=== PATIENT | male | born 1950 | race Two or more races ===

== ENCOUNTER 2025-02-21 23:47 | Inpatient (IN) | payer MEDICARE, OTHER, SELFPAY ==
[2025-02-21 23:48] VITALS: BMI 26.6
[2025-02-21 23:59] VITALS: BP 132/78; PULSE 89; RESP 20; TEMP 37.2; O2SAT 99
[2025-02-22] VITALS (8 sets, daily range): BP systolic 143–184; BP diastolic 81–99; PULSE 82–105; RESP 17–26; TEMP 36.2–36.4; O2SAT 92–98; BMI 27.7
--- NOTE | 2025-02-22 | XR_ITS ---
Examination: Abdomen AP single view Technique: AP portable supine abdomen, single view Exam date and time: February 22, 2025, 1656 hrs. Indications: 7 hour delayed film post small bowel series today. Findings: Prominently air distended small bowel loops Impression: High-grade mechanical small bowel obstruction. Recommend follow-up films 6:00 PM, 8:00 PM, 10:00 PM
--- NOTE | 2025-02-22 | XR_ITS ---
Examination: Abdomen AP single view Technique: AP portable supine abdomen, single view Exam date and time: February 22, 2025 1303 hours INDICATIONS: Abdominal pain and distention this week, 3 hour delayed film post small bowel series today FINDINGS: Contrast remains in the stomach Significantly air distended small bowel loops noted IMPRESSION: Small bowel obstruction pattern Continued follow-up films will be obtained
--- NOTE | 2025-02-22 | XR_ITS ---
Examination: Abdomen AP single view Technique: AP portable supine abdomen, single view Exam date and time: February 22, 2025, 1442 hours INDICATIONS: Abdominal distention today, small bowel obstruction pattern on CT abdomen pelvis study 0203 hours this morning, 5 hour delayed film post small bowel series FINDINGS: Contrast in distended small bowel loops IMPRESSION: High-grade mechanical small bowel obstruction
--- NOTE | 2025-02-22 00:12 | XR_ITS ---
Examination: CT abdomen with intravenous contrast CT pelvis with intravenous contrast 2-D coronal reconstructions 2-D sagittal reconstructions Date and time of exam:February 22, 2025, 0203 hours, comparison December 30, 2023 INDICATIONS: Abdominal pain nausea vomiting today. CTDI: vol (mGy) 7.40 DLP: (mGycm) 506 Technique: Multiple axial sections of the abdomen and pelvis have been obtained. 64 slice high-resolution scanner used. 3 mm axial sections have been obtained, post intravenous injection 60 cc [id number] 2-D sagittal, coronal reconstructions obtained. Low dose protocols were performed. One or more of the following dose reduction techniques were used; automated exposure control, adjustment of the mA and/or KV according to patient size, use of iterative reconstruction technique. Findings: Mild enlargement cardiac contour. Fluid distended stomach. No focal liver lesions No gallstones No pancreatic mass Multiple prominently fluid distended small bowel loops Aortic calcification no aneurysmal dilatation No hydronephrosis Colon is decompressed There is rotation of the mesentery in the midabdomen Moderate prostatomegaly Fat-containing inguinal hernias Urinary bladder intact Advanced disc narrowing L4-L5 with prominent osteopenia IMPRESSION: High-grade mechanical small bowel obstruction, recommend surgical consultation Recommend Gastrografin small bowel series follow-up
--- NOTE | 2025-02-22 00:13 | PD.EDRME ---
Rapid Medical Screening Exam RME Arrival date/time: 02/21/25 23:47 74M with history of DM presents to ED with 1 day of gen ab pain and N/V. Patient states he had an SBO last year and this feels the same. Chief Complaint: Abdominal Pain Vital signs: Vital Signs Temperature 99 F 02/21/25 23:59 Pulse Rate 89 02/21/25 23:59 Respiratory Rate 20 02/21/25 23:59 Blood Pressure 132/78 H 02/21/25 23:59 Pulse Oximetry (%) 99 02/21/25 23:59 Oxygen Delivery Method Room Air 02/21/25 23:59
[2025-02-22 00:37] LABS: Collection Type, Urine Clean Catch; Squamous Epithelial Cell,Urine 0 /hpf (0-5)
[2025-02-22 00:46] LABS: Bilirubin,Urine Negative (Negative); Blood,Urine 1+ (Negative); Clarity,Urine Clear (Clear/Hazy); Color,Urine Lt-Yellow (Lt Yel-Yel); Culture Indicated,Urine Not Indicated; Glucose, Urine Negative (Negative); Ketones,Urine Trace (Negative); Leukocyte Esterase,Urine Negative (Negative); Nitrite,Urine Negative (Negative); PH,Urine 6.0 (5.0-7.0); Protein,Urine Trace (Neg - Trace); RBC,Urine 12 /hpf (0-3); Specific Gravity,Urine 1.017 (1.001-1.035); Urobilinogen,Urine Negative mg/dL (0.0-1.0); WBC,Urine 1 /hpf (0-5)
[2025-02-22 00:51] LABS: Amphetamine/Methamp Scrn,U Negative (Negative); Barbiturate Screen,Urine Negative (Negative); Benzodiazepines Screen,Urine Negative (Negative); Benzoylecgonine Screen, Ur Negative (Negative); Fentanyl Screen,Urine Negative (Negative); Opiate Screen,Urine Negative (Negative); THC Screen,Urine Negative (Negative)
[2025-02-22 00:57] LABS: Lactate (Lactic Acid) 2.0 mMol/L (0.4-2.0)
[2025-02-22 01:12] LABS: Basophils # (Auto) 0.0 Thou/mm3 (0.0-0.2); Basophils % (Auto) 0 % (0-2.5); Eosinophils # (Auto) 0.1 Thou/mm3 (0.0-0.5); Eosinophils % (Auto) 1 % (0-10); Hematocrit 39.1 % (41.0-53.0); Hemoglobin 13.0 g/dL (13.5-16.0); Immature Granulocytes Auto 0.03 Thou/mm3 (0.00-0.00); Lymphocytes # (Auto) 1.3 Thou/mm3 (1.0-4.8); Lymphocytes % (Auto) 17 % (10-50); Mean Corpuscular HGB Conc 33.2 g/dl (31.0-37.0); Mean Corpuscular Hemoglobin 30.9 pg (25.0-35.0); Mean Corpuscular Volume 93 fL (80-100); Monocytes # (Auto) 0.3 Thou/mm3 (0.0-0.8); Monocytes % (Auto) 4 % (0-12); Neutrophils # (Auto) 5.7 Thou/mm3 (1.8-7.7); Neutrophils % (Auto) 77 % (37-80); Nucleated Red Blood Cell # 0.00 Thou/mm3 (0.00-0.00); Nucleated Red Blood Cell % 0 /100 WBC (0); Platelet Count 117 Thou/mm3 (140-440); RDW Standard Deviation 44.7 fL (35.1-43.9); Red Blood Count 4.21 Miln/mm3 (4.50-5.90); White Blood Count 7.4 Thou/mm3 (3.8-10.6)
[2025-02-22 01:26] LABS: Alanine Aminotransferase 10 U/L (10-49); Albumin, Serum 5.0 gm/dL (3.4-4.8); Albumin/Globulin Ratio 2.4 (1.2-2.2); Alkaline Phosphatase 105 U/L (46-116); Anion Gap 12 (7-16); Aspartate Amino Transferase 15 U/L (0-34); BUN/Creatinine Ratio 11 Ratio (12-20); Bilirubin,Total 0.4 mg/dL (0.3-1.2); Blood Urea Nitrogen 14 mg/dL (9-23); Calcium 10.7 mg/dL (8.3-10.6); Calcium (Corrected) 10.7 mg/dL (8.5-10.1); Carbon Dioxide 24.9 mMol/L (20.0-31.0); Chloride 106 mMol/L (98-107); Creatinine (Component) 1.3 mg/dL (0.6-1.3); Estimated Creatinine Clearance 45.2 mL/min (>60); Globulin 2.1 gm/dL (2.3-3.5); Glucose 241 mg/dL (74-106); Lipase 29 U/L (12-53); Osmolality,Calculated 293 (275-295); Potassium 4.6 mMol/L (3.4-5.1); Procalcitonin 0.05 ng/ml (0.0-0.49); Sodium 143 mMol/L (136-145); Total Protein 7.1 gm/dL (5.7-8.2); eGFR 57 See Note
[2025-02-22] MEDS: ONDANSETRON INJ 2 MG/ML INJ 2 ML 4 MG IV (01:32)
[2025-02-22] MEDS: MORPHINE SULF INJ 10 MG/ML VIAL 5 MG IVP (01:33)
--- NOTE | 2025-02-22 01:39 | PC.NURSE ---
PT BIB FOR 1 DAY OD ABDOMINAL PAIN WITH N/V. PT STATES THAT HE WAS JUST IN [facility] FOR CONSTPATION. PT STATES HE HAS A HISTORY OF SBO
--- NOTE | 2025-02-22 03:17 | PD.EDABDPN ---
ED Abdominal Pain RME/HPI General Chief Complaint: Abdominal Pain Stated complaint: ABD PAIN NV Arrival date/time: 02/21/25 23:47 RME / HPI RME / HPI narrative: 02/21/25 23:47 74M with history of DM presents to ED with 1 day of gen ab pain and N/V. Patient states he had an SBO last year and this feels the same. DR. 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 Denies fever and dysuria. Notes chills worse with ambulation. 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 Currently no mild distention. PMH of DM. Previous surgical history unremarkable. Report allergies to penicillin. Social history negative for tobacco and alcohol consumption. Related Data Previous Rx's ?Medication ?Instructions ?Recorded magnesium hydroxide 400 mg/5 mL 20 ml PO TID PRN constipation #355 12/30/23 oral suspension (Milk of Magnesia) mL Allergies Allergy/AdvReac Type Severity Reaction Status Date / Time Penicillins Allergy Intermediate Rash Verified 02/21/25 23:51 Review of Systems Review of Systems Systems Reviewed: All systems reviewed, normal except as documented Past Medical History Past Medical History CARDIAC: Positive Hypertension GASTROINTESTINAL: Positive Gastroesophageal Reflux Disease ENDOCRINE: Positive Diabetes Mellitus Type 2 ED Exam Narrative Physical exam: GEN. APPEARANCE: The patient is alert awake oriented X-3 in no distress, lying down comfortably, does not look ill/toxic. Patient has good eye contact. Patient is cooperative. VITALS: All vitals were reviewed and the pulse ox is 98% on room air which is normal according to my interpretation. HEENT: Normocephalic, atraumatic. Pupils are equal and reactive. Oral mucosa is moist. Patent Nares NECK: Supple, nontender, no thyromegaly, no meningismus, no JVD, no step offs CHEST: Symmetrical, atraumatic, and with equal expansion , Nontender on palpation no deformity and no crepitus. CARDIOVASCULAR: Heart regular rhythm no murmur or gallop rub or extra beats. LUNGS: Clear to auscultation bilaterally with symmetrical chest rise. No laboring tachypnea or wheezing. No intercostal subcostal retraction. No rales and no rhonchi. ABDOMEN: Soft, flat, abdomen mildly distended, hypertympanitic with tenderness to suprapubic area and RLQ, slight guarding noted, no rebound tenderness. There are no abnormal masses palpated. Active and normal bowel sounds. EXTREMITIES: Nontender. No edema. No cyanosis. Patient is able to move all 4 extremities well, with full ROM and good CSM. SKIN: Warm and dry, no jaundice or rashes noted. MUSCULOSKELETAL: No lubar or midline bony tenderness. There is no CVA tenderness. No paraspinal muscle spasm or tenderness. NEURO: Patient is SHIPLEY x 4, Cranial nerves II through XII grossly intact. There is no focal neurologic deficits noted. GCS is 15, PNS and [employer] appear grossly intact. PSYCHIATRIC: Patient is in normal mood and affect, cooperative, no SI or HI or hallucinations. Course Course Course Narrative: CXR was ordered for determining the etiology of shortness of breath. Quality Measures none Orders Category Date Time Status Admit to Inpatient Status Routine Admission 02/22/25 05:41 Active Patient Condition Routine Admission 02/22/25 05:[address] Screening NOW Care 02/22/25 00:12 Active Insert IV NOW Care 02/22/25 00:12 Active Insert NG / OG tube NOW Care 02/22/25 03:56 Active Miscellaneous Nursing Order NOW Care 02/22/25 05:40 Active NG / OG Tube to LIS NOW Care 02/22/25 03:30 Completed NPO NOW Care 02/22/25 05:41 Active Notify provider NEEDED Care 02/22/25 05:40 Active Diet NPO (NOW) Diet 02/22/25 05:[address] abdomen pelvis w con Stat Exams 02/22/25 00:12 Taken XR chest 1V post procedure Stat Exams 02/22/25 04:30 Taken Basic Metabolic Panel AM DRAW Lab 02/23/25 05:00 Ordered Basic Metabolic Panel AM DRAW Lab 02/24/25 05:00 Ordered Basic Metabolic Panel AM DRAW Lab 02/25/25 05:00 Ordered CBC AM DRAW Lab 02/23/25 05:00 Ordered CBC AM DRAW Lab 02/24/25 05:00 Ordered CBC AM DRAW Lab 02/25/25 05:00 Ordered CBC Stat Lab 02/22/25 00:51 Completed CMP [Comprehensive Metabolic Panel] Stat Lab 02/22/25 00:51 Completed Drug Screen,Urine Stat Lab 02/22/25 00:30 Completed Lactate (Lactic Acid) Stat Lab 02/22/25 00:51 Completed Lipase Stat Lab 02/22/25 00:51 Completed Procalcitonin Stat Lab 02/22/25 00:51 Completed Urinalysis, C/S if Indicated Stat Lab 02/22/25 00:30 Completed Heparin Inj Med 02/22/25 09:00 Active 5,000 unit SC Q12HR Morphine Inj Med 02/22/25 05:40 Active 2 mg IVP Q2H PRN Morphine Inj Med 02/22/25 03:17 Discontinued 4 mg IVP X1 ONE Morphine Inj Med 02/22/25 00:12 Discontinued 5 mg IVP X1 ONE Ondansetron Inj [Zofran Inj] Med 02/22/25 00:12 Discontinued 4 mg IV X1 ONE Ondansetron Inj [Zofran Inj] Med 02/22/25 05:40 Active 4 mg IVP Q6H PRN Ringers Lactated 1000 ml [Lactated Ringers] 1,000 ml Med 02/22/25 05:45 Active IV 75 mls/hr Sodium Chloride 0.9% 1000 ml [Ns] 1,000 ml Med 02/22/25 03:17 Discontinued IV 999 mls/hr Code Status Routine Oth 02/22/25 05:40 Ordered Vital Signs Vital signs: Vital Signs Temperature 99 F 02/21/25 23:59 Pulse Rate 89 02/21/25 23:59 Respiratory Rate 20 02/21/25 23:59 Blood Pressure 132/78 H 02/21/25 23:59 Pulse Oximetry (%) 99 02/21/25 23:59 Oxygen Delivery Method Room Air 02/21/25 23:59 Abdominal Pain MDM MDM Narrative MDM Narrative:: Scribe Attestation: I, Padmini Jones, am scribing for and in the presence of Dr. Rangel. Provider Notation: Although this document has been carefully reviewed, there may still be some phonetic and other typographical errors. These errors are purely grammatical due to imperfections in the software program and should not be construed in any way to? compromise the substance of the patient's medical care during this visit. 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 Denies fever and dysuria. Notes chills worse with ambulation. Please see PE findings. Laboratory markings demonstrate normal WBC. Serum chemistries demonstrate marginally elevated calcium of 10.7 and UA demonstrates mild hematuria. Toxicology screen is negative. Imaging including CT of the abdomen/pelvis demonstrates partial small bowel obstruction. NG tube placed to decompress, hospitalists consulted for admission. Final diagnosis includes small bowel obstruction, and disposition patient admitted to medicine service. Patient data External records reviewed:: [facility] previous records (Reviewed prior ED records from 12/30/23. Patient was seen for Abdominal pain.) Clinical information provided by:: patient Social determinants that could affect healthcare access:: none Patient has the following chronic illnesses:: HTN, GERD, Type II DM How is presenting disease/condition affected by chronic disease/condition?: exacerbated by Evaluation data The following diagnostics were reviewed and interpreted by me:: lab results and radiology exam(s) Lab and/or radiology exams considered but not ordered:: None Interpretation Summary: RADIOLOGY Abdomen/Pelvis CT: Pending official radiology report. Chest X-Ray: Pending official radiology report. Medications / Prescriptions Medications or Prescriptions considered but not ordered:: None Medication administrations:: Medication Administration History Dextrose (Dextrose 50%-Water Inj 50 Ml Syringe) 25 ml IV Q15MIN PRN PRN Reason: BG 50-70 responsive npo pt Stop: 03/24/25 05:44 Dextrose (Dextrose 50%-Water Inj 50 Ml Syringe) 50 ml IV Q15MIN PRN PRN Reason: BG <50 OR BG <70 & pt unresponsive Stop: 03/24/25 05:44 Glucagon (Glucagon Inj 1 Mg Vial) 1 mg IM Q15MIN PRN PRN Reason: BG <70, and no IV access Heparin Sodium (Porcine) (Heparin Sod Inj 5000 Unit/Ml Vial) 5,000 unit SC Q12HR PIERCE Stop: 03/08/25 08:59 Lactated Ringer's (Lactated Ringers) 1,000 mls @ 75 mls/hr IV .[id number] PIERCE Stop: 02/23/25 08:24 Last Admin: 02/22/25 05:48 Dose: 75 mls/hr Documented By: CRISTOPHER Insulin Human Lispro (Insulin Lispro (Admelog) 1 Unit/0.01 Ml Unit) 0 unit SC Q6HR PIERCE; Protocol Stop: 03/24/25 05:59 Last Admin: 02/22/25 06:05 Dose: 3 unit Documented By: CRISTOPHER Co-signed By: OKSANA Morphine Sulfate (Morphine Sulf Inj 10 Mg/Ml Vial) 2 mg IVP Q2H PRN PRN Reason: PAIN SCALE 7-10 (Severe Stop: 02/27/25 05:39 Ondansetron HCl (Ondansetron Inj 2 Mg/Ml Inj 2 Ml) 4 mg IVP Q6H PRN; Protocol PRN Reason: NAUSEA OR VOMITING Stop: 03/24/25 05:39 Discontinued Medications Sodium Chloride (Ns) 1,000 mls @ 999 mls/hr IV .Q1H1M ONE Stop: 02/22/25 04:17 Last Infusion: 02/22/25 04:29 Dose: Infused Documented By: Admin: 02/22/25 03:28 Dose: 999 mls/hr Documented By: CRISTOPHER Morphine Sulfate (Morphine Sulf Inj 10 Mg/Ml Vial) 5 mg IVP X1 ONE Stop: 02/22/25 00:13 Last Admin: 02/22/25 01:33 Dose: 5 mg Documented By: CRISTOPHER Morphine Sulfate (Morphine Sulf Inj 10 Mg/Ml Vial) 4 mg IVP X1 ONE Stop: 02/22/25 03:18 Last Admin: 02/22/25 03:28 Dose: 4 mg Documented By: CRISTOPHER Ondansetron HCl (Ondansetron Inj 2 Mg/Ml Inj 2 Ml) 4 mg IV X1 ONE; Protocol Stop: 02/22/25 00:13 Last Admin: 02/22/25 01:32 Dose: 4 mg Documented By: CRISTOPHER See above if any. Consultations Consultation(s) initiated? (list below): Yes Consultation #1 (Physician, Specialty, Details): Discussed case with [place]. [place] approved admission to hospital. [place] approval code: [id number]. Time: 04:50 Consultation #2 (Physician, Specialty, Details): Hospitalist made aware of the patient?s HPI, PMHx, lab and/or radiology results. Treatment plan was discussed. Will admit for further evaluation and management. Accepts patient for admission. Time: 04:54 Diagnosis Differential diagnosis abdominal pain: abdominal pain, acute appendicitis, calculus of kidney, constipation, diverticulitis, gastroenteritis, pancreatitis and small bowel obstruction Most likely diagnosis given after review of the tests above:: SBO Admission Indicated Admission indicated?: indicated Explain why admission is indicated or not indicated:: SBO Admission Request Was there a request for admission?: Yes Admission Attestation Admission request attestation: Discussed case with [] from Hospitalist service regarding admission. Discussed patients ED course, exam findings, labs, and radiology results. The Hospitalist [agrees,declines] to accept the patient for admission. Disposition Plan Disposition Plan: Admit Discharge Plan Plan Patient Disposition: Admit Acute Care w/in Hospital Problem List Clinical Impression: Small bowel obstruction
[2025-02-22] MEDS: MORPHINE SULF INJ 10 MG/ML VIAL 4 MG IVP (03:28)
[2025-02-22] MEDS: SODIUM CHLORIDE 0.9% 1000 ML 1,000 ML 999 ML IV (03:28)
--- NOTE | 2025-02-22 03:37 | PRELIM_ITS ---
CT scan of the abdomen and pelvis with intravenous contrast (axial sections with sagittal and coronal reformats) February 22, 2025 0203 hours Clinical History: Abdominal pain and N/V Comparison: None Findings: There is a 6 mm subpleural nodule versus scarring in the right middle lobe (axial image 26/311). Bibasilar atelectasis is seen. The gallbladder, pancreas and spleen are unremarkable. There is fatty infiltration of the liver with a subcentimeter too small to characterize hypodensity in the right lobe. There is mild bilateral adrenal hyperplasia. There are renal cortical cysts bilaterally. There is no ureteric calculus or hydroureteronephrosis. There are fluid filled and abnormally clustered dilated loops of mid/distal jejunum in the mid abdomen with adjacent mesenteric fat stranding and fluid. The transition is in the mid abdomen mesentery at the level of proximal ileum with possible partial mesenteric twist (coronal images 70-80/176). The remainder of small bowel is normal in caliber. There is a diverticulum from the third part of the duodenum. The appendix is within normal limits (images 140-170/311). A moderate amount of fecal material is present in the colon. There are multiple colonic diverticula without evidence of diverticulitis. There are subcentimeter lymph nodes in the mid abdomen mesentery. The urinary bladder is unremarkable. There is moderate prostatomegaly indenting the bladder base. There is no free fluid or free air. The abdominal aorta demonstrates atheromatous calcification without evidence of aneurysm. A small fat-containing umbilical hernia is present. There are small fat containing bilateral inguinal hernias. Osseous degenerative changes are noted. Impression: Findings suggestive of high grade small bowel obstruction with transition in the mid abdomen at the level of proximal ileum possibly related to partial mesenteric twist/volvulus versus adhesions. Recommend clinical correlation. Other findings as described above. Discussion Details: Results verbally communicated to : Dr. Gould at 03:25 AM 02/22/2025 Report Electronically Signed By: River Abel 02/22/2025 3:36:05 AM [EST]
--- NOTE | 2025-02-22 04:30 | XR_ITS ---
Examination: AP chest single view TECHNIQUE: AP portable upright chest single view Date and time: February 22, 2025, 0435 hours INDICATIONS: Post orogastric tube placement FINDINGS: Orogastric tube in the stomach satisfactory position Air distended small bowel loops Large mass displacing the trachea to the left which may represent enlarged right lobe the thyroid Minor subsegmental atelectasis right base IMPRESSION: Orogastric tube in the stomach satisfactory position Recommend thyroid sonography follow-up to confirm large substernal right thyroid lobe
--- NOTE | 2025-02-22 05:45 | XR_ITS ---
Examination: Small bowel series AP abdomen 3 views INDICATIONS: Abdominal pain and distention this week, high-grade mechanical small bowel obstruction on CT abdomen pelvis study 0203 hours this morning TECHNIQUE AND FINDINGS: Patient received 120 cc Gastrografin through the orogastric tube AP supine abdomen films immediate, 30 minutes, 1 hour obtained Multiple air distended small bowel loops Contrast remains in the colon IMPRESSION: Small bowel obstruction pattern Recommend follow-up abdomen films 1:00 PM, 3:00 PM, 5:00 PM, 7:00 PM
[2025-02-22] MEDS: RINGERS LACTATED 1000 ML 1,000 ML 75 ML IV ×2 (05:48→18:27)
--- NOTE | 2025-02-22 05:48 | ESHP_ITS ---
Documentation for date of: 02/22/25 HPI History of Present Illness Chief complaint: N/V, abdominal pain History of present illness: 74 y/o F with PMHx significant for DM, previous episode of SBO presents with chief complaint of abdominal pain, nausea, vomiting x 1 day. Patient reports that the pain is diffuse, achy, progressively worsening, associated with multiple episodes of emesis, nonbloody. Patient also reports poor appetite during this time. Patient denies fevers, chills, chest pain, shortness of breath. ED COURSE: Labs significant for: WBC 7.4, hemoglobin 13, creatinine 1.3, EGFR 57. Corrected calcium 10.7 Pro-Feliciano negative. Urinalysis showed 12 RBCs. Serum glucose 241. Imaging significant for: CT A/P showing high-grade SBO. Patient had NG tube placed, received 1 L bolus normal saline, morphine in the ED. PMH: Diabetes PSH: No previous surgeries SH: Denies alcohol, tobacco, illicit drug use Allergies:?Penicillin Medications: Lisinopril, glipizide, metformin, simvastatin, Protonix Review of Systems Review of Systems Systems Reviewed: All systems reviewed, normal except as documented Past Medical History Past Medical History Comments PMH COMMENT: PMH: Diabetes PSH: No previous surgeries SH: Denies alcohol, tobacco, illicit drug use Allergies:?Penicillin Medications: Lisinopril, glipizide, metformin, simvastatin, Protonix Exam Vital Signs Temp Pulse Resp BP Pulse Ox O2 Del Method 97.5 F 82 26 H 158/81 H 97 Room Air 02/22/25 01:23 02/22/25 01:23 02/22/25 01:23 02/22/25 02:16 02/22/25 01:23 02/22/25 01:23 Narrative Exam PE: Gen: Well-developed and well-nourished. HEENT: NCAT, PERRLA, EOMI, MMM, anicteric conjunctivae. NG tube. CVS: normal S1 and S2. RRR. No M/R/G. Resp: CTA B/L. No rhonchi, rales, crackles or wheezing. Abd: Distended, diffuse mild abdominal tenderness. MSK: Good ROM in BUE & BLE. No edema or rash. Neuro: CN II-XII grossly intact. Strength 5/5 in BUE & BLE. Alert and oriented x3. Psych: appropriate mood and affect. Results: Labs 02/22/25 00:51 02/22/25 00:51 Labs: Short CBC 02/22/25 Range/Units 00:51 WBC 7.4 (3.8-10.6) Thou/mm3 Hgb 13.0 L (13.5-16.0) g/dL Hct 39.1 L (41.0-53.0) % Plt Count 117 L (140-440) Thou/mm3 BMP 02/22/25 00:51 Sodium 143 Potassium 4.6 Chloride 106 Carbon Dioxide 24.9 BUN 14 Creatinine 1.3 Glucose 241 H Calcium 10.7 H Liver Function 02/22/25 Range/Units 00:51 Total Bilirubin 0.4 (0.3-1.2) mg/dL AST 15 (0-34) U/L ALT 10 (10-49) U/L Alkaline Phosphatase 105 (46-116) U/L Albumin 5.0 H (3.4-4.8) gm/dL Urine 02/22/25 Range/Units 00:30 Urine Color Lt-Yellow (Lt Yel-Yel) Urine Clarity Clear (Clear/Hazy) Urine pH 6.0 (5.0-7.0) Ur Specific [place] 1.017 (1.001-1.035) Urine Protein Trace (Neg - Trace) Urine Glucose (UA) Negative (Negative) Quality Measures Quality Measures VTE prophylaxis Advance care planning discussed with:: patient Medications Home Medications and Allergies Allergies Allergy/AdvReac Type Severity Reaction Status Date / Time Penicillins Allergy Intermediate Rash Verified 02/21/25 23:51 Visit Medications Dextrose (Dextrose 50%-Water Inj 50 Ml Syringe) 25 ml IV Q15MIN PRN PRN Reason: BG 50-70 responsive npo pt Stop: 03/24/25 05:44 Dextrose (Dextrose 50%-Water Inj 50 Ml Syringe) 50 ml IV Q15MIN PRN PRN Reason: BG <50 OR BG <70 & pt unresponsive Stop: 03/24/25 05:44 Glucagon (Glucagon Inj 1 Mg Vial) 1 mg IM Q15MIN PRN PRN Reason: BG <70, and no IV access Heparin Sodium (Porcine) (Heparin Sod Inj 5000 Unit/Ml Vial) 5,000 unit SC Q12HR PIERCE Stop: 03/08/25 08:59 Lactated Ringer's (Lactated Ringers) 1,000 mls @ 75 mls/hr IV .[id number] PIERCE Stop: 02/23/25 08:24 Insulin Human Lispro (Insulin Lispro (Admelog) 1 Unit/0.01 Ml Unit) 0 unit SC Q6HR PIERCE; Protocol Stop: 03/24/25 05:59 Morphine Sulfate (Morphine Sulf Inj 10 Mg/Ml Vial) 2 mg IVP Q2H PRN PRN Reason: PAIN SCALE 7-10 (Severe Stop: 02/27/25 05:39 Ondansetron HCl (Ondansetron Inj 2 Mg/Ml Inj 2 Ml) 4 mg IVP Q6H PRN; Protocol PRN Reason: NAUSEA OR VOMITING Stop: 03/24/25 05:39 Discontinued Medications Sodium Chloride (Ns) 1,000 mls @ 999 mls/hr IV .Q1H1M ONE Stop: 02/22/25 04:17 Last Infusion: 02/22/25 04:29 Dose: Infused Morphine Sulfate (Morphine Sulf Inj 10 Mg/Ml Vial) 5 mg IVP X1 ONE Stop: 02/22/25 00:13 Last Admin: 02/22/25 01:33 Dose: 5 mg Morphine Sulfate (Morphine Sulf Inj 10 Mg/Ml Vial) 4 mg IVP X1 ONE Stop: 02/22/25 03:18 Last Admin: 02/22/25 03:28 Dose: 4 mg Ondansetron HCl (Ondansetron Inj 2 Mg/Ml Inj 2 Ml) 4 mg IV X1 ONE; Protocol Stop: 02/22/25 00:13 Last Admin: 02/22/25 01:32 Dose: 4 mg Assessment & Plan Plan 74 y/o F with PMHx significant for DM, previous episode of SBO presents with chief complaint of abdominal pain, nausea, vomiting x 1 day, admitted for high- grade SBO. #SBO Patient presents with abdominal pain, nausea, vomiting x 1 day. Patient reports feeling similar symptoms 1 year ago when he had SBO resolved without surgical intervention. CT A/P confirms high-grade BL. Patient seen later with no symptom, NG tube placed in ED. Patient has no previous history of surgery. - N.p.o. - NG tube to LIS - Small bowel follow-through with Gastrografin - Morphine as needed for pain - IVF: LR at 75 mL/h x 2 L #DM Patient history as stated. No A1c on file. [id number]. Serum glucose 241 on admission. - ISS every 6 hours - A1c ordered, follow-up DVT prophylaxis: Heparin GI prophylaxis: None Diet: N.p.o. Lines: Peripheral IV, NG tube Code status: Full code Plan of care discussed with attending Dr. Shea. Elijah Savage MD PGY?2 Attending Provider Attestation/Addendum After examination of the patient and review of the clinical data I feel that this patient needs admission to the hospital for further treatment/evaluation. I have discussed and was present for the essential components of the history, physical examination, diagnosis, and treatment plan with the resident. I agree with the patient's care as documented by the resident and amended herein by me. Wilian Shea DO. Although this document has been carefully reviewed, there may still be some phonetic and other typographical errors. These errors are purely grammatical due to imperfections in the software program and should not be construed in any way to compromise the substance of the patient's medical care during this visit.
[2025-02-22] MEDS: INSULIN LISPRO (AdmeLOG) 1 UNIT/0.01 ML UNIT SC ×3 (06:05→18:01)
[2025-02-22 06:25] LABS: Glucose Estimated Average 157 mg/dL (80-131); Hemoglobin A1C 7.1 % Hgb (4.8-6.0)
[2025-02-22] MEDS: HEPARIN SOD INJ 5000 UNIT/ML VIAL SC ×2 (09:11→20:48)
[2025-02-22] MEDS: MORPHINE SULF INJ 10 MG/ML VIAL 2 MG IVP ×2 (09:23→13:01)
[2025-02-22] MEDS: ONDANSETRON INJ 2 MG/ML INJ 2 ML 4 MG IVP ×2 (11:09→16:53)
--- NOTE | 2025-02-22 15:32 | ESPR_ITS ---
<Statement entered by Aubrey Navarro MD - 03/05/25 08:45> I reviewed above note and agree with findings and plans. I have also personally examined the patient with medicine team and went over assessment and plan with medical team including creative intern and resident physician. <Statement entered by Jadiel Wyman MD - 02/22/25 15:47> Senior Resident Attestation: I supervised/discussed management plan with creative intern physician Dr. Whitman, and was involved in the care of this patient. I personally saw and examined the patient and discussed the assessment and plan with the entire medicine team, including my attending. I agree with the assessment and plan as documented. Patient is undergoing SBS, LIS is discontinued. He does not pass gas yet. Will continue SBS and will consider GS consult. Patient's care was discussed with attending physician, Dr. Navarro. Jadiel Wyman MD PGY-3. Documentation for date of: 02/22/25 Subjective Subjective Interval history: Patient seen at bedside this morning. No acute events overnight. Denies passage of flatus or having a bowel movement. Recently received Gastrografin. Abdomen is distended. Will continue to monitor for worsening symptoms. No additional complaints at this time. Exam Vital Signs Temp Pulse Resp BP Pulse Ox O2 Del Method 97.6 F 98 18 151/97 H 95 Room Air 02/22/25 12:00 02/22/25 12:00 02/22/25 12:00 02/22/25 12:00 02/22/25 12:00 02/22/25 12:00 Narrative Exam Physical Exam General: Awake and in no acute distress. Uncomfortable. HEENT: Normocephalic, atraumatic, mucous membranes moist. NG tube in place. Heart: Regular rate and rhythm, no murmurs. Lungs: Clear to auscultation with no wheezing or crackles. Abdomen: Soft, distended and diffuse mild tenderness. No guarding or rebound tenderness. Neurologic: Alert and oriented x3, no gross neurological deficit, and patient able to move all 4 extremities. Extremities: No edema. Skin: No rash or ecchymoses. Objective Labs 02/23/25 04:42 02/23/25 04:42 Labs: Laboratory Results - last 24 hr 02/22/25 02/22/25 00:30 00:51 WBC 7.4 RBC 4.21 L Hgb 13.0 L Hct 39.1 L MCV 93 MCH 30.9 MCHC 33.2 RDW Std Deviation 44.7 H Plt Count 117 L Neut % (Auto) 77 Lymph % (Auto) 17 [place] % (Auto) 4 Eos % (Auto) 1 Baso % (Auto) 0 Neut # (Auto) 5.7 Lymph # (Auto) 1.3 [place] # (Auto) 0.3 Eos # (Auto) 0.1 Baso # (Auto) 0.0 Immature Gran # (Auto) 0.03 H Absolute Nucleated RBC 0.00 Immature Gran % 0 Nucleated RBC % 0 Sodium 143 Potassium 4.6 Chloride 106 Carbon Dioxide 24.9 Anion Gap 12 BUN 14 Creatinine 1.3 Estim Creat Clear Calc 45.2 L eGFR 57 L BUN/Creatinine Ratio 11 L Glucose [address] Glu mg/dL 157 H Hemoglobin A1c 7.1 H Calculated Osmolality 293 Lactic Acid 2.0 Calcium 10.7 H Corrected Calcium 10.7 H Total Bilirubin 0.4 AST 15 ALT 10 Alkaline Phosphatase 105 Total Protein 7.1 Albumin 5.0 H Globulin 2.1 L Albumin/Globulin Ratio 2.4 H Lipase 29 Procalcitonin 0.05 Ur Collection Type Clean Catch Urine Color Lt-Yellow Urine Clarity Clear Urine pH 6.0 Ur Specific [place] 1.017 Urine Protein Trace Urine Glucose (UA) Negative Urine Ketones Trace Urine Blood 1+ A Urine Nitrite Negative Urine Bilirubin Negative Urine Urobilinogen (Auto) Negative Ur Leukocyte Esterase Negative Urine RBC 12 H Urine WBC 1 Ur Squamous Epith Cells 0 Urine Bacteria None Ur Culture Indicated? Not Indicated Urine Opiates Screen Negative Urine Fentanyl Screen Negative Ur Barbiturates Screen Negative U Amphetamin/Meth Scrn Negative U Benzodiazepines Scrn Negative U Cocaine Metab Screen Negative U Marijuana (THC) Screen Negative Quality Measures Quality Measures VTE prophylaxis Advance care planning discussed with:: patient Assessment & Plan Assessment Current Active Medications: Generic Name Dose Route Start Last Admin Trade Name Freq PRN Reason Stop Dose Admin Dextrose 25 ml 02/22/25 05:45 Dextrose 50%-Water Inj 50 Ml Syringe IV 03/24/25 05:44 Q15MIN PRN BG 50-70 responsive npo pt Dextrose 50 ml 02/22/25 05:45 Dextrose 50%-Water Inj 50 Ml Syringe IV 03/24/25 05:44 Q15MIN PRN BG <50 OR BG <70 & pt unresponsive Glucagon 1 mg 02/22/25 05:45 Glucagon Inj 1 Mg Vial IM Q15MIN PRN BG <70, and no IV access Heparin Sodium (Porcine) 5,000 unit 02/22/25 09:00 02/22/25 09:11 Heparin Sod Inj 5000 Unit/Ml Vial SC 03/08/25 08:59 5,000 unit Q12HR PIERCE Administration Lactated Ringer's 1,000 mls @ 75 mls/hr 02/22/25 05:45 02/22/25 05:48 Lactated Ringers IV 02/23/25 08:24 75 mls/hr .[id number] PIERCE Administration Insulin Human Lispro 0 unit 02/22/25 06:00 02/22/25 12:04 Insulin Lispro (Admelog) 1 Unit/0.01 Ml Unit SC 03/24/25 05:59 1 unit Q6HR PIERCE Administration Protocol Morphine Sulfate 2 mg 02/22/25 05:40 02/22/25 13:01 Morphine Sulf Inj 10 Mg/Ml Vial IVP 02/27/25 05:39 2 mg Q2H PRN Administration PAIN SCALE 7-10 (Severe Ondansetron HCl 4 mg 02/22/25 05:40 02/22/25 11:09 Ondansetron Inj 2 Mg/Ml Inj 2 Ml IVP 03/24/25 05:39 4 mg Q6H PRN Administration NAUSEA OR VOMITING Protocol Plan 74 year old male with a past medical history significant for diabete mellitus and hypertension and a previous episode of ileus, presents with abdominal pain, nausea, and vomiting, now admitted for high-grade small bowel obstruction. #Small bowel obstruction Patient with generalized abdominal pain, several bouts of non-bloody emesis, and constipation for 2 days. Denies fever and dysuria. Patient reports symptoms similar to a prior episode of ileus about one year ago, which resolved conservatively without surgical intervention. CT abd/pelvis confirms high-grade bowel loop obstruction. NG tube was placed in the ED. No previous history of surgery. Plan: - NPO. - NG tube to LIS. - Small bowel follow-through with Gastrografin. - Morphine as needed for pain. - IVF: LR at 75 mL/h x 2 L. - Consultation with General Surgery will be considered if symptoms worsen or if surgical intervention is needed. #Type 2 diabetes mellitus Non-insulin dependent. On admission initial glucose 241. Hemoglobin A1c 7.1. On Glipizide and metformin at home. Plan: - Bedside blood glucose checks ACHS. - Insulin lispro sliding scale, adjusted as necessary. #Hypertension On Lisinopril at home #Hyperlipidemia On Simvastatin at home Health Maintenance DVT prophylaxis: Heparin 5,000 U subQ GI prophylaxis: None Diet: NPO Lines: Peripheral IV, NG tube CODE STATUS: FULL Patient plan of care was discussed with the senior resident, Dr. Wyman, and attending physician, Dr. Navarro. Jaswinder Whitman, DO PGY-1
--- NOTE | 2025-02-22 18:30 | XR_ITS ---
Examination: Abdomen AP single view Technique: AP portable supine abdomen, single view Exam date and time: February 22, 2025, 1838 hrs. Indications: Abdominal distention, small bowel obstruction pattern, 8 hour delayed film post small bowel series today Findings: Contrast is diluted in prominently air distended small bowel loops Impression: High-grade mechanical small bowel obstruction
--- NOTE | 2025-02-22 20:30 | XR_ITS ---
Examination: Abdomen AP single view Technique: AP portable supine abdomen, single view Exam date and time: February 22, 2025, 2027 hrs. Indications: Abdominal pain and distention this week, 10.5 hour delayed film post small bowel series today. Findings: Contrast remains in the stomach Prominently air distended small bowel loops Impression: High-grade small bowel obstruction, recommend follow-up films 10:00 PM, 1:00 AM 4:00 AM, 7:00 AM
[2025-02-22] MEDS: METOCLOPRAMIDE INJ 5 MG/ML VIAL 2 ML 10 MG IVP (20:46)
--- NOTE | 2025-02-22 21:15 | ESCONSULT_ITS ---
[facility] Consult details Consult date: 02/22/25 Reason for consultation narrative: The patient was seen in consultation for a possible small bowel obstruction. History of present illness: History of present illness revealed that the patient was in his usual health until 3 days ago when he stopped having bowel movements. He also was doing slight abdominal distention. But yesterday by 4:00 he started having pain in the abdomen that was diffuse which increased in intensity and therefore he came to the hospital. Patient had his prior episode like this about a year ago and was treated and discharged. Patient denies any such surgery in the past. Patient [place] a [facility] [place] it was negative according to him. his other medical problem consisted of diabetes mellitus and hypertension. Patient was started on small bowel series today but he vomited 4 times Past Medical History Past Medical History NEUROLOGIC: Negative Neurological Disorders, Cerebrovascular Accident, Transient Ischemic Attacks (TIA), Dementia, Alzheimer's Disease, Parkinson's Disease, Brain Tumor, Meningitis, Seizures, Epilepsy, Multiple Sclerosis, Cerebral Palsy, Amyotrophic Lateral Sclerosis (ALS/Ann Gehrig's), Guillain-[place] Syndrome, Spina Bifida, Paralysis, Peripheral Neuropathy, Padgett's Palsy, Subdural Hematoma, Migraine, Head Trauma, Spinal Cord Injury or Traumatic Brain Injury CARDIAC: Positive Hypercholesterolemia (Per patient i have a little bit. not to much. ) and Hypertension; Negative Cardiac Disorders, Myocardial Infarction, Cardiac Arrhythmia, Atrial Fibrillation, Angina, Heart Murmur, Coronary Artery Disease, Atherosclerotic Heart Disease, Peripheral Vascular Disease, Aneurysm, Congestive Heart Failure, Congenital Heart Disease, Valvular Heart Disease, Rheumatic Fever, Cardiomyopathy, Edema, Pericarditis, Cellulitis, Deep Vein Thrombosis, Hypotension or Varicose Veins RESPIRATORY: Negative Respiratory Disorders, Chronic Obstructive Pulmonary Disease (COPD), Asthma, Bronchitis, Emphysema, Pneumonia, Pulmonary Fibrosis, Cystic Fibrosis, Tuberculosis, Pulmonary Embolism, Pulmonary Edema or Sleep Apnea GASTROINTESTINAL: Positive Gastroesophageal Reflux Disease; Negative Gastrointestinal Disorders, Hepatitis, Cirrhosis, Pancreatitis, Celiac Disease, Gall Bladder Disease, Gastrointestinal Bleed, Esophageal Varices, Koenig's Esophagus, Colitis, Ulcerative Colitis, Diverticulitis, Diverticulosis, Ulcer, Colorectal Cancer, Irritable Bowel, Crohn's Disease, Obstructive Bowel, Hiatal Hernia, Hemorrhoids, Polyps or Obesity GENITOURINARY: Negative Genitourinary Disorders, Chronic Kidney Disease, Renal Disease, Kidney Stones, Polycystic Kidney Disease, Neurogenic Bladder, Inguinal Hernia, Dialysis, Prostate Cancer or Benign Prostatic Hyperplasia REPRODUCTIVE: Negative Breast Cancer, Fibroids, Genital Herpes, Gonorrhea, Syphilis or Testicular Cancer MUSCULOSKELETAL: Negative Musculoskeletal Disorders, Muscular Dystrophy, Myasthenia Gravis, Marfan's Syndrome, Bone Cancer, Arthritis, Rheumatoid Arthritis, Osteoporosis, Degenerative Disk Disease, Gout, Scoliosis, Carpal Tunnel Syndrome, Fibromyalgia, Fractures, Degenerative Joint Disease, Oste omyelitis or Poliovirus ENT: Positive Glaucoma; Negative History of ENT Problems, Cataracts, Blind, Retinal Detachment, Macular Degeneration, Ear Infection, Deafness, Head Trauma or Eye Prosthesis ENDOCRINE: Positive Diabetes Mellitus Type 2; Negative Endocrine Disorders, Diabetes Mellitus Type 1, Hypoglycemia, Damian's Syndrome, Doddridge's Disease, Hyperthyroidism, Hypothyroidism, Parathyroid D isease, Pituitary Disease, Systemic Lupus Erythematosus, Syndrome of Inappropriate Antidiuretic Hormone (SIADH), Adrenal Disease or Graves' Disease HEMATOLOGIC: Positive Blood Disorders and Anemia; Negative Leukemia, Hemophilia, Thalassemia, Sickle Cell Disease or Clotting Problems PSYCHO/SOCIAL: Negative Psychiatric Problems, Schizophrenia, Recreational Drug Use, Bipolar Disorder, Depression, Anxiety, Behavior Problems, Self-Mutilation, Attention Deficit Disorder, Attention Deficit Hyperactivity Disorder, Depression, Post Traumatic Stress Disorder or Eating Disorder OTHER HISTORY: Negative Hospitalization, Autoimmune Disease, Down Syndrome, Autism, Developmental Delay, Shingles, Falls, Blood Transfusions, Blood Transfusion Reaction, Anesthesia Reactions, Organ Transplant, Chemotherapy, Radiation Therapy, Hyperbaric Therapy, MRSA, VRSA, Vancomycin-Resistant Enterococci, Human Immunodeficiency Virus (HIV), Chicken Pox, Measles, Mumps, Rubella (Syriac Measles), Pertussis, Clostridium Difficile, Cancer, Breast Cancer, Colorectal Cancer, Lung Cancer, Prostate Cancer or Testicular Cancer Family History FAMILY HISTORY: Negative Family Psychiatric Problems, Family Respiratory Disorders, Family Cardiac Disorders, Family Gastrointestinal Problems, Family Genitourinary Problems, Family Endocrine Disorders, Family Reproductive Disorders, Family Musculoskeletal Disorders, Family Cancer, Family Surgery or Family Anesthesia Reaction Surgical History SURGICAL: Negative Cardiac Surgery, Open Heart Surgery, Coronary Artery Bypass Graft, Valve Replacement, Vascular Surgery, Coronary Stent, Cardiac Catheterization, Pacemaker, Angiogram, Auto Implanted Cardiovert Defib, Carotid Endarterectomy, Endocrine Surgery, Thyroidectomy, Ear Surgery, Tympanostomy Tube, Eye Surgery, Nose Surgery, Oral Surgery, Tonsillectomy, Adenoidectomy, Cochlear Implant, Corneal Transplant, Throat Surgery, Abdominal Surgery, Tracheostomy, Gastric Bypass Surgery, Gastrostomy, Bowel Surgery, Penile Implant, Nephrectomy, Ureteral Stent, Transurethral Resection, Joint Replacement, of Shoulder Sx, Amputation, Knee Sx, Hip Sx, Open Reduction Internal Fixation, Arthroscopy, of Back Surgery, Neurologic Surgery, Brain Shunt, Mastectomy, Vasectomy, Organ Transplant or ESWL Social History SMOKING STATUS: Former smoker SECOND HAND EXPOSURE: No SUBSTANCE USE: does not use Past Medical History Comments PMH COMMENT: PMH: Diabetes PSH: No previous surgeries SH: Denies alcohol, tobacco, illicit drug use Allergies:?Penicillin Medications: Lisinopril, glipizide, metformin, simvastatin, Protonix Meds Home Medications and Allergies Allergies Allergy/AdvReac Type Severity Reaction Status Date / Time Penicillins Allergy Intermediate Rash Verified 02/21/25 23:51 Exam Vital Signs Temp Pulse Resp BP Pulse Ox O2 Del Method 97.1 F 105 H 18 143/89 H 92 L Room Air 02/22/25 20:00 02/22/25 20:00 02/22/25 20:00 02/22/25 20:00 02/22/25 20:00 02/22/25 20:00 Narrative Exam Physical examination revealed a well-built well-nourished [place] male who is 5 f eet 6 inches tall weighing 172 pounds. Patient is tachycardic with a heart rate of around 105 his vital signs are otherwise stable Constitutional Constitutional: mild distress Routine Abdominal Exam Comments: Examination abdomen showed soft abdomen which appears distended but there is no localized tenderness anywhere. Bowel sounds are hypoactive Routine Rectal Exam Comments: Deferred Routine Exam Comments: Deferred Results Results: Laboratory Laboratory Narrative: Patient's laboratory work is within normal limits Results: Imaging Imaging narrative: CT scan and small bowel series shows high-grade small bowel obstruction in 12 hours the contrast has not gone to the colon. But most of the contrast seem to have been emptied because of the patient's vomiting Assessment & Plan Additional Assessment Additional comments: Pression: High-grade small bowel obstruction Diabetes mellitus poorly controlled Plan Plan: Patient may require exploration if he does not open up by tomorrow. He said he passed small amount of flatus but is not sure. We shall wait and see if the contrast goes to the colon. Otherwise exploration is indicated the patient does not have any pain and that is encouraging because small bowel obstruction will have severe pain. I would like to observe him tonight and for completion of the small bowel series and then proceed according to the results tomorrow.
--- NOTE | 2025-02-22 21:38 | PC.NURSE ---
Not to put NG tube for now per Dr. Mojica, wait for tomorrow to see what his last x-ray shows per Dr. Mojica. stated that there is no point to re-insert NG tube and have it clamped for the small bowel series.
[2025-02-22] MEDS: RINGERS LACTATED 1000 ML 1,000 ML 150 ML IV (21:42)
--- NOTE | 2025-02-22 22:30 | XR_ITS ---
Examination: Abdomen AP single view Technique: AP portable supine abdomen, single view Exam date and time: February 22, 2025, 10:10 PM Indications:: Delayed film post small bowel series today, abdominal pain and distention Findings: Contrast is noted in markedly distended small bowel loops Impression: High-grade mechanical small bowel obstruction pattern, recommend follow-up films 1:00 AM, 4:00 AM, 7:00 AM.
[2025-02-23] VITALS (19 sets, daily range): BP systolic 148–165; BP diastolic 68–99; PULSE 82–110; RESP 13–19; TEMP 36.1–36.6; O2SAT 91–99; BMI 27.6
[2025-02-23] MEDS: INSULIN LISPRO (AdmeLOG) 1 UNIT/0.01 ML UNIT SC ×4 (00:36→17:32)
--- NOTE | 2025-02-23 00:58 | PC.NURSE ---
okay to give a little bit of ice chips to pt just to moist his mouth per Dr. Collier
--- NOTE | 2025-02-23 01:00 | XR_ITS ---
Examination: Abdomen AP single view Technique: AP portable supine abdomen, single view Exam date and time: February 24, 2025, 0052 hrs. Indications: Abdominal pain and distention this week, 14 hour delayed film post small bowel series yesterday. Findings: Contrast diluted in the stomach and small bowel Markedly distended small bowel loops Impression: High-grade small bowel obstruction pattern
--- NOTE | 2025-02-23 01:30 | PC.NURSE ---
ice chips not given since pt vomited 200 ccs after R-ray tech put him flat in bed to do x-ray for small bowel series.
--- NOTE | 2025-02-23 04:00 | XR_ITS ---
Examination: Abdomen AP single view Technique: AP portable supine abdomen, single view Exam date and time: February 23, 2025, 0359 hrs. Abdominal pain and distention this week, 17 hour delayed film post small bowel series yesterday Findings: Contrast primarily in the stomach, however air distended small bowel loops are again noted Impression: Small bowel obstruction pattern, recommend follow-up films 10:00 AM
[2025-02-23 05:10] LABS: Basophils # (Auto) 0.0 Thou/mm3 (0.0-0.2); Basophils % (Auto) 0 % (0-2.5); Eosinophils # (Auto) 0.0 Thou/mm3 (0.0-0.5); Eosinophils % (Auto) 0 % (0-10); Hematocrit 39.6 % (41.0-53.0); Hemoglobin 12.9 g/dL (13.5-16.0); Immature Granulocytes Auto 0.02 Thou/mm3 (0.00-0.00); Lymphocytes # (Auto) 0.7 Thou/mm3 (1.0-4.8); Lymphocytes % (Auto) 16 % (10-50); Mean Corpuscular HGB Conc 32.6 g/dl (31.0-37.0); Mean Corpuscular Hemoglobin 30.1 pg (25.0-35.0); Mean Corpuscular Volume 92 fL (80-100); Monocytes # (Auto) 0.2 Thou/mm3 (0.0-0.8); Monocytes % (Auto) 5 % (0-12); Neutrophils # (Auto) 3.6 Thou/mm3 (1.8-7.7); Neutrophils % (Auto) 79 % (37-80); Nucleated Red Blood Cell # 0.00 Thou/mm3 (0.00-0.00); Nucleated Red Blood Cell % 0 /100 WBC (0); Platelet Count 141 Thou/mm3 (140-440); RDW Standard Deviation 45.9 fL (35.1-43.9); Red Blood Count 4.29 Miln/mm3 (4.50-5.90); White Blood Count 4.6 Thou/mm3 (3.8-10.6)
[2025-02-23 05:29] LABS: Anion Gap 12 (7-16); BUN/Creatinine Ratio 14 Ratio (12-20); Blood Urea Nitrogen 19 mg/dL (9-23); Calcium 10.7 mg/dL (8.3-10.6); Carbon Dioxide 30.2 mMol/L (20.0-31.0); Chloride 102 mMol/L (98-107); Creatinine (Component) 1.4 mg/dL (0.6-1.3); Estimated Creatinine Clearance 44.1 mL/min (>60); Glucose 273 mg/dL (74-106); Osmolality,Calculated 299 (275-295); Potassium 4.2 mMol/L (3.4-5.1); Sodium 144 mMol/L (136-145); eGFR 52 See Note
[2025-02-23] MEDS: RINGERS LACTATED 1000 ML 1,000 ML 150 ML IV (05:51)
--- NOTE | 2025-02-23 06:37 | PC.NURSE ---
pt vomited 100ccs after being laying down for small bowel series for a total of 300ccs today.
--- NOTE | 2025-02-23 07:00 | XR_ITS ---
Examination: Abdomen AP single view Technique: AP portable supine abdomen, single view Exam date and time: February 24, 2025, 0648 hrs. Indications: Abdominal pain and distention this week, 20 hour delayed film post small bowel series yesterday Findings: Contrast is diluted in markedly distended small bowel loops Impression: Small bowel obstruction pattern Recommend follow-up abdomen films 10:00 AM
--- NOTE | 2025-02-23 07:53 | ESPR_ITS ---
<Statement entered by Jackson Lima MD - 02/23/25 14:43> Patient was examined and case was reviewed with team including attending physician. Note reviewed, I agree with most of its contents and agree with the patient's care as documented by Dr. Whitman Patient seen today at the bedside found awake, alert, orientedx3. No overnight events reported. Vitals and labs reviewed. Patient was admitted for small bowel obstruction had small bowel series done however contrast remained in the stomach and the small bowel's. General surgery will take the patient to the OR. Will evaluate postoperatively. Case discussed with my attending Dr. Khushbu Lima MD PGY-2 Disclaimer: Despite multiple revisions, due to the dictation software being used, the document bellow may not be free of grammatical errors including phonetic/typographic errors. However, this does not deter from our commitment to providing health care in the patient's best interest in mind. <Statement entered by Ely Ríos MD - 02/23/25 12:46> I attest that I was physically present for the evaluation, physical examination, lab and imaging review of the patient with the residents. I discussed the case with the residents and agree with the findings and plans of care as documented below. Patient is a 74 years old female with past medical history of diabetes mellitus, prior small bowel obstruction who presented to the ED with complaint of abdominal pain, nausea and vomiting. Patient was admitted and being managed for small bowel obstruction. Vital signs are stable this morning except for mild hypertension. Lab results are also stable except for glucose of 273. Underwent upper GI series, contrast remained in small bowels. Patient underwent exploratory laparotomy and release of adhesion with general surgery, tolerated the procedure well. We will keep her n.p.o. for now, continue with IV hydration. We will adjust her insulin regimen depending on fingerstick glucose readings. On analgesic regimen for pain control. Ely Ríos MD Documentation for date of: 02/23/25 Subjective Subjective Interval history: Patient was seen at bedside this morning. Overnight, NG tube was dislodged during episodes of emesis. Patient reports vomiting ~3 times. Currently on 2L nasal cannula, denies shortness of breath, and is speaking comfortably with airway patent. Patient notes abdominal distension is improved today. General Surgery was consulted, and patient underwent exploratory laparotomy with Dr. Wolfe today. Blood glucose levels remain elevated?insulin degludec will be added. Blood pressure has been elevated as well, plan to resume home antihypertensive regimen post-operatively. Exam Vital Signs Temp Pulse Resp BP Pulse Ox O2 Del Method 97.6 F 92 19 148/78 H 93 L Room Air 02/23/25 04:00 02/23/25 04:00 02/23/25 04:00 02/23/25 04:00 02/23/25 04:00 02/23/25 04:00 Narrative Exam Physical Exam General: Awake and in no acute distress. Uncomfortable. Nasal cannula in place. HEENT: Normocephalic, atraumatic, mucous membranes moist. Heart: Regular rate and rhythm, no murmurs. Lungs: Clear to auscultation with no wheezing or crackles. Abdomen: Soft, distended and diffuse mild tenderness. No guarding or rebound tenderness. Neurologic: Alert and oriented x3, no gross neurological deficit, and patient able to move all 4 extremities. Extremities: No edema. Skin: No rash or ecchymoses. Objective Labs 02/23/25 04:42 02/23/25 04:42 Labs: Laboratory Results - last 24 hr 02/23/25 04:42 WBC 4.6 RBC 4.29 L Hgb 12.9 L Hct 39.6 L MCV 92 MCH 30.1 MCHC 32.6 RDW Std Deviation 45.9 H Plt Count 141 D Neut % (Auto) 79 Lymph % (Auto) 16 [place] % (Auto) 5 Eos % (Auto) 0 Baso % (Auto) 0 Neut # (Auto) 3.6 Lymph # (Auto) 0.7 L [place] # (Auto) 0.2 Eos # (Auto) 0.0 Baso # (Auto) 0.0 Immature Gran # (Auto) 0.02 H Absolute Nucleated RBC 0.00 Immature Gran % 0 Nucleated RBC % 0 Sodium 144 Potassium 4.2 Chloride 102 Carbon Dioxide 30.2 Anion Gap 12 BUN 19 Creatinine 1.4 H Estim Creat Clear Calc 44.1 L eGFR 52 L BUN/Creatinine Ratio 14 Glucose 273 H Calculated Osmolality 299 H Calcium 10.7 H Quality Measures Quality Measures VTE prophylaxis Advance care planning discussed with:: patient Assessment & Plan Assessment Current Active Medications: Generic Name Dose Route Start Last Admin Trade Name Freq PRN Reason Stop Dose Admin Dextrose 25 ml 02/22/25 05:45 Dextrose 50%-Water Inj 50 Ml Syringe IV 03/24/25 05:44 Q15MIN PRN BG 50-70 responsive npo pt Dextrose 50 ml 02/22/25 05:45 Dextrose 50%-Water Inj 50 Ml Syringe IV 03/24/25 05:44 Q15MIN PRN BG <50 OR BG <70 & pt unresponsive Glucagon 1 mg 02/22/25 05:45 Glucagon Inj 1 Mg Vial IM Q15MIN PRN BG <70, and no IV access Heparin Sodium (Porcine) 5,000 unit 02/22/25 09:00 02/22/25 20:48 Heparin Sod Inj 5000 Unit/Ml Vial SC 03/08/25 08:59 5,000 unit Q12HR PIERCE Administration Lactated Ringer's 1,000 mls @ 150 mls/hr 02/22/25 21:25 02/23/25 05:51 Lactated Ringers IV 03/24/25 21:24 150 mls/hr .Q6H40M PIERCE Administration Insulin Degludec 5 unit 02/23/25 09:00 Insulin Degludec 5 Unit/0.05 Ml (Per 5 Units) SC 03/25/25 08:59 QDAY PIERCE Insulin Human Lispro 0 unit 02/22/25 06:00 02/23/25 05:47 Insulin Lispro (Admelog) 1 Unit/0.01 Ml Unit SC 03/24/25 05:59 2 unit Q6HR PIERCE Administration Protocol Morphine Sulfate 2 mg 02/22/25 05:40 02/22/25 13:01 Morphine Sulf Inj 10 Mg/Ml Vial IVP 02/27/25 05:39 2 mg Q2H PRN Administration PAIN SCALE 7-10 (Severe Ondansetron HCl 4 mg 02/22/25 05:40 02/22/25 16:53 Ondansetron Inj 2 Mg/Ml Inj 2 Ml IVP 03/24/25 05:39 4 mg Q6H PRN Administration NAUSEA OR VOMITING Protocol Plan 74 year old male with a past medical history significant for diabete mellitus and hypertension and a previous episode of ileus, presents with abdominal pain, nausea, and vomiting, now admitted for high-grade small bowel obstruction, undergone exploratory lap. #Small bowel obstruction Patient with generalized abdominal pain, several bouts of non-bloody emesis, and constipation for 2 days. Denies fever and dysuria. Patient reports symptoms similar to a prior episode of ileus about one year ago, which resolved conservatively without surgical intervention. CT abd/pelvis confirms high-grade bowel loop obstruction. NG tube was placed in the ED. No previous history of surgery. Small bowel follow-through with Gastrografin. Exploratory laparotomy and release of adhesions,(enterolysis) on 02/23. Found to have a complete small bowel obstruction at the jejunal level due to adhesive band which was constricting the bowel considerably. Plan: - NPO. - NG tube to LIS.- Morphine as needed for pain. - IVF: LR at 75 mL/h x 2 L. - S/p exploratory lap with Dr. Wolfe today (02/23) - appreciate recs for postop care. #Type 2 diabetes mellitus Non-insulin dependent. On admission initial glucose 241. Hemoglobin A1c 7.1. On Glipizide and metformin at home. Plan: - Bedside blood glucose checks ACHS. - Insulin lispro sliding scale, adjusted as necessary. - Added insulin degludec 5 units #Hypertension On Lisinopril at home Plan: - Restart home lisinopril after surgery. #Hyperlipidemia On Simvastatin at home Plan: -Restart home simvastain after surgery. Health Maintenance DVT prophylaxis: Heparin 5,000 U subQ GI prophylaxis: None Diet: Pending surgery recs. Lines: Peripheral IV CODE STATUS: FULL Patient plan of care was discussed with the senior resident, Dr. Kevan Lima, and attending physician, Dr. Ríos. Jaswinder Whitman DO PGY-1
--- NOTE | 2025-02-23 09:46 | PD.SURPROG ---
Documentation for date of: 02/23/25 Subjective Subjective Brief History: History of present illness revealed that the patient was in his usual health until 3 days ago when he stopped having bowel movements. He also was doing slight abdominal distention. But yesterday by 4:00 he started having pain in the abdomen that was diffuse which increased in intensity and therefore he came to the hospital. Patient had his prior episode like this about a year ago and was treated and discharged. Patient denies any such surgery in the past. Patient had a colonoscopy 3 months ago in [place] it was negative according to him. his other medical problem consisted of diabetes mellitus and hypertension. Patient was started on small bowel series today but he vomited 4 times Narrative: Patient's condition is unchanged from last night. He does not have any pain and he has not passed any flatus or stools. He feels distended Exam Vital Signs Temp Pulse Resp BP Pulse Ox O2 Del Method O2 Flow Rate 96.9 F 91 17 162/99 H 95 Nasal Cannula 2 02/23/25 08:00 02/23/25 08:00 02/23/25 08:00 02/23/25 08:00 02/23/25 08:00 02/23/25 08:00 02/23/25 08:00 His vital signs are normal other than mild tachycardia Routine Abdominal Exam Comments: Abdominal examination shows very silent abdomen with no bowel sounds Results Results: Laboratory Laboratory Narrative: Laboratory results are unchanged Results: Imaging Imaging narrative: X-ray done this morning still shows dilated loops of small bowel with no contrast in the colon Assessment & Plan Assessment Additional comments: Impression: High-grade possibly complete small bowel obstruction Plan Plan: Patient will require exploration. The procedure was explained to the patient and the and the risks like infection intra-abdominal abscess wound infection and need for a possible bowel resection etc. were explained to the. Patient is agreeable and will proceed this morning to operating room.
--- NOTE | 2025-02-23 11:56 | ESOP_ITS ---
Date of Procedure 02/23/25 Pre Op Diagnosis Complete small bowel obstruction Post Op Diagnosis Same due to adhesions Procedure Explored laparotomy and release of adhesions,(enterolysis) Findings Patient was found to have a complete small bowel obstruction at the jejunal level due to adhesive band which was constricting the bowel considerably. Procedure Description After the patient was brought to the operating room endotracheal anesthesia was given. Abdomen was prepped with ChloraPrep solution. Kaur catheter was inserted. Timeout was performed. Then I made a midline incision close to the umbilicus extending down towards the lower abdomen. This incision was about 5 inches in length then explored the abdomen and was found to have a distended small bowel this was delivered out and this was mostly dilated jejunum. 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 I found out a constricting band which was causing total obstruction. This was clamped with Kathy clamp and suture tied with 2-0 silk. Then I realized that this constricted bowel was considerably narrowed. However I was able to milked the contents of the dilated bowel through this narrowing and I was able to feel the lumen between the index finger and my thumb. I did not feel any need for resection of this area even though it was very angulated. Then I ran the small bowel from the ligament of Treitz all the way down to the ileocecal junction. I could not identify the appendix. After checking for bleeding points wound was irrigated extensively as and aspirated. NG tube was placed in the stomach which was very dilated. Patient had a 1500 cc of greenish fluid in the NG tube. Then the abdomen was closed in 1 layer using 0 PDS for the fascia. Subcutaneous tissue was closed with 3-0 plain and injected 30 cc of half percent Marcaine over the incision for analgesia. Wound was then closed with angelica and dressing was applied. Patient tolerated procedure. Anesthesia GETA Pathology / specimen None IVF Infused 1,500 Estimated Blood Loss 30 Condition Stable Disposition PACU Surgeon Yaneth Norton MD Surgical Staff Operation Date: 02/23/25 10:15 Case Staff AIRFIELD ENGINEER OFFICER: Junior Kirk RN First Assistant: Catarina Yepez
--- NOTE | 2025-02-23 12:06 | SUR.PHASEI ---
1151 patient is sleepy and arousable to name, breathing unlabored, s/p exploratory laparotomy, dressing to abdomen dry with no bleeding, NG tube to right nare present at 70cm, connected to LIS per MD order, folley catheter present and draining clear yellow outpout. Report received from Peyton XIE and Junior Abraham CRNA.
--- NOTE | 2025-02-23 12:27 | PC.SS ---
Field Project Manager (EMELIA) Nilam attempted to complete an initial assessment; Pt. was being taken to surgery. SW to f/u tomorrow, 02/23/2025.
--- NOTE | 2025-02-23 13:03 | SUR.PHASEI ---
1251 patient is awake, alert, breathing unlabored, dressing to abdomen dry with no bleeding, NG tube drained total of 200ml output. Report given to Radha XIE, patient transferred to room 377.
[2025-02-23] MEDS: SODIUM CHLORIDE 0.9% 1000 ML 1,000 ML 125 ML IV ×2 (14:12→21:40)
[2025-02-23] MEDS: HEPARIN SOD INJ 5000 UNIT/ML VIAL SC (20:46)
[2025-02-24] VITALS (8 sets, daily range): BP systolic 150–159; BP diastolic 77–93; PULSE 87–104; RESP 16–19; TEMP 36.1–36.8; O2SAT 95–98
[2025-02-24 05:27] LABS: Basophils # (Auto) 0.0 Thou/mm3 (0.0-0.2); Basophils % (Auto) 0 % (0-2.5); Eosinophils # (Auto) 0.0 Thou/mm3 (0.0-0.5); Eosinophils % (Auto) 0 % (0-10); Hematocrit 35.3 % (41.0-53.0); Hemoglobin 11.4 g/dL (13.5-16.0); Immature Granulocytes Auto 0.02 Thou/mm3 (0.00-0.00); Lymphocytes # (Auto) 0.6 Thou/mm3 (1.0-4.8); Lymphocytes % (Auto) 13 % (10-50); Mean Corpuscular HGB Conc 32.3 g/dl (31.0-37.0); Mean Corpuscular Hemoglobin 30.4 pg (25.0-35.0); Mean Corpuscular Volume 94 fL (80-100); Monocytes # (Auto) 0.3 Thou/mm3 (0.0-0.8); Monocytes % (Auto) 8 % (0-12); Neutrophils # (Auto) 3.6 Thou/mm3 (1.8-7.7); Neutrophils % (Auto) 79 % (37-80); Nucleated Red Blood Cell # 0.00 Thou/mm3 (0.00-0.00); Nucleated Red Blood Cell % 0 /100 WBC (0); Platelet Count 106 Thou/mm3 (140-440); RDW Standard Deviation 46.8 fL (35.1-43.9); Red Blood Count 3.75 Miln/mm3 (4.50-5.90); White Blood Count 4.6 Thou/mm3 (3.8-10.6)
[2025-02-24 05:51] LABS: Albumin, Serum 3.5 gm/dL (3.4-4.8); Alkaline Phosphatase 61 U/L (46-116); Anion Gap 9 (7-16); BUN/Creatinine Ratio 15 Ratio (12-20); Blood Urea Nitrogen 20 mg/dL (9-23); Calcium 9.2 mg/dL (8.3-10.6); Calcium (Corrected) 9.6 mg/dL (8.5-10.1); Carbon Dioxide 29.9 mMol/L (20.0-31.0); Chloride 106 mMol/L (98-107); Creatinine (Component) 1.3 mg/dL (0.6-1.3); Estimated Creatinine Clearance 47.5 mL/min (>60); Glucose 229 mg/dL (74-106); Magnesium 1.5 mg/dL (1.6-2.6); Osmolality,Calculated 298 (275-295); Potassium 4.1 mMol/L (3.4-5.1); Sodium 145 mMol/L (136-145); eGFR 57 See Note
[2025-02-24 06:02] LABS: Alanine Aminotransferase 9 U/L (10-49); Albumin/Globulin Ratio 2.1 (1.2-2.2); Aspartate Amino Transferase 13 U/L (0-34); Bilirubin,Total 0.4 mg/dL (0.3-1.2); Globulin 1.7 gm/dL (2.3-3.5); Phosphorous 3.5 mg/dL (2.4-5.1); Total Protein 5.2 gm/dL (5.7-8.2)
[2025-02-24] MEDS: SODIUM CHLORIDE 0.9% 1000 ML 1,000 ML 125 ML IV ×3 (06:15→23:16)
--- NOTE | 2025-02-24 06:15 | PC.NURSE ---
asleep all night.
--- NOTE | 2025-02-24 06:50 | PC.NURSE ---
Dr. Norton called rn- Updated re current pt condition status- w/ orders made and carried out.
[2025-02-24] MEDS: Magnesium Sulfate 4 GM Ivpb 4 GM/50 ML BAG IV (09:06)
[2025-02-24] MEDS: HEPARIN SOD INJ 5000 UNIT/ML VIAL SC ×2 (09:06→20:18)
--- NOTE | 2025-02-24 10:52 | PD.SURPROG ---
Documentation for date of: 02/24/25 Subjective Subjective Brief History: History of present illness revealed that the patient was in his usual health until 3 days ago when he stopped having bowel movements. He also was doing slight abdominal distention. But yesterday by 4:00 he started having pain in the abdomen that was diffuse which increased in intensity and therefore he came to the hospital. Patient had his prior episode like this about a year ago and was treated and discharged. Patient denies any such surgery in the past. Patient had a colonoscopy 3 months ago in [place] it was negative according to him. his other medical problem consisted of diabetes mellitus and hypertension. Patient was started on small bowel series today but he vomited 4 times Narrative: The patient appears comfortable and he does not have any need for morphine. NG tube drainage is very minimal Exam Vital Signs Temp Pulse Resp BP Pulse Ox O2 Del Method O2 Flow Rate 97.1 F 97 19 157/77 H 98 Oxy Mask 2 02/24/25 08:00 02/24/25 10:07 02/24/25 10:07 02/24/25 09:06 02/24/25 10:07 02/24/25 08:00 02/24/25 10:07 His vital signs are normal Routine Abdominal Exam Comments: Abdominal examination is silent Results Results: Laboratory Laboratory Narrative: Lab results are within normal limits Assessment & Plan Assessment Additional comments: Impression: Stable postoperative course following lysis of adhesions Plan Plan: We shall DC the NG tube and Kaur and start him on clear liquids PROCEDURES: Procedures Explored laparotomy and release of adhesions,(enterolysis)
--- NOTE | 2025-02-24 11:28 | ESPR_ITS ---
<Statement entered by Ely Ríos MD - 02/24/25 16:01> I attest that I was physically present for the evaluation, physical examination, lab and imaging review of the patient with the residents. I discussed the case with the residents and agree with the findings and plans of care as documented below. At bedside today, patient states she is feeling well and denies any new complaints. He did not have any pain. Underwent exploratory laparotomy with release of ideation yesterday with general surgery. Has not have any bowel movement or passed any gas yet. Discussed with general surgery, agreed on starting him on clear liquid diet and DVT prophylaxis. We will continue to monitor closely for bowel movement or gas, we will advance his diet slowly as tolerated. Ely Ríos MD <Statement entered by Jackson Lima MD - 02/24/25 13:29> Patient was examined and case was reviewed with team including attending physician. Note reviewed, I agree with most of its contents and agree with the patient's care as documented by Dr. Yañez Patient seen today at the bedside found awake, alert, orientedx3. No overnight events reported. Vitals and labs reviewed. Patient's postop day 1 status post ex lap with enterolysis of small bowel adhesions. Currently on clear liquid diet will advance as tolerated. Insulin regimen adjusted. Will continue to monitor adjust pain regimen as required. Case discussed with my attending Dr. Khushbu Lima MD PGY-2 Disclaimer: Despite multiple revisions, due to the dictation software being used, the document bellow may not be free of grammatical errors including phonetic/typographic errors. However, this does not deter from our commitment to providing health care in the patient's best interest in mind. Documentation for date of: 02/24/25 Subjective Subjective Interval history: Patient underwent exploratory laparotomy for SBO, released adhesions of the jejunum. Will start on clear diet and advance as tolerated.D/C NG tube. CTM for gas and BM. Patient continues to have blood glucose in 200s. On Degludec 5 U QHS. Increased SSI to step 2. Now that pt has PO diet, can monitor how many units he needs throughout the day and adjust basal insulin as needed. Patient evaluated at bedside. Reports mild abdominal pain around incision, otherwise denies pain. Mild abdominal distension with clears. Exam Vital Signs Temp Pulse Resp BP Pulse Ox O2 Del Method O2 Flow Rate 97.1 F 97 19 157/77 H 98 Oxy Mask 2 02/24/25 08:00 02/24/25 10:07 02/24/25 10:07 02/24/25 09:06 02/24/25 10:07 02/24/25 08:00 02/24/25 10:07 Narrative Exam General: No acute distress, well nourished Eye: PERRL, EOMI, normal conjunctiva, no scleral icterus HENT: Normocephalic, atraumatic, normal hearing, moist oral mucosa Neck: Supple, non-tender, no JVD, no lymphadenopathy Lungs: Clear to auscultation bilaterally, non-labored respirations, symmetric chest rise, no use of accessory muscles Heart: Normal S1 and S2, no S3 or S4 appreciated. Normal rate and regular rhythm, no murmurs, rubs gallops, or edema. Peripheral pulses intact bilaterally, capillary refill brisk distally. No LE edema Abdomen: Soft, mildly distended. Clean ex lap scar, bandaged. Tenderness around incision site. Musculoskeletal: Normal range of motion and strength, no tenderness or swelling Skin: Skin is warm, dry, no rashes or lesions. Neurologic: Alert, awake and oriented x3. CN II-XII grossly intact. No focal neuro deficits. No signs of meningeal irritation noted. Psychiatric: Cooperative, appropriate mood and affect Objective Labs 02/24/25 05:01 02/24/25 05:01 Labs: Laboratory Results - last 24 hr 02/24/25 05:01 WBC 4.6 RBC 3.75 L Hgb 11.4 L Hct 35.3 L MCV 94 MCH 30.4 MCHC 32.3 RDW Std Deviation 46.8 H Plt Count 106 L D Neut % (Auto) 79 Lymph % (Auto) 13 [place] % (Auto) 8 Eos % (Auto) 0 Baso % (Auto) 0 Neut # (Auto) 3.6 Lymph # (Auto) 0.6 L [place] # (Auto) 0.3 Eos # (Auto) 0.0 Baso # (Auto) 0.0 Immature Gran # (Auto) 0.02 H Absolute Nucleated RBC 0.00 Immature Gran % 0 Nucleated RBC % 0 Sodium 145 Potassium 4.1 Chloride 106 Carbon Dioxide 29.9 Anion Gap 9 BUN 20 Creatinine 1.3 Estim Creat Clear Calc 47.5 L eGFR 57 L BUN/Creatinine Ratio 15 Glucose 229 H Calculated Osmolality 298 H Calcium 9.2 D Corrected Calcium 9.6 Phosphorus 3.5 Magnesium 1.5 L Total Bilirubin 0.4 AST 13 ALT 9 L Alkaline Phosphatase 61 D Total Protein 5.2 L Albumin 3.5 D Globulin 1.7 L Albumin/Globulin Ratio 2.1 Quality Measures Quality Measures VTE prophylaxis Advance care planning discussed with:: patient and spouse Assessment & Plan Assessment Current Active Medications: Generic Name Dose Route Start Last Admin Trade Name Freq PRN Reason Stop Dose Admin Albuterol/Ipratropium 3 ml 02/23/25 10:21 Albuterol/Ipratropium (Duoneb) Rt Genny 3 Ml Nebu INH 03/25/25 10:20 Q4HRRT PRN SHORTNESS OF BREATH Atorvastatin Calcium 5 mg 02/23/25 13:45 02/23/25 14:25 Atorvastatin Calcium 10 Mg Tablet PO 03/25/25 13:44 Not Given HS PIERCE Dextrose 25 ml 02/22/25 05:45 Dextrose 50%-Water Inj 50 Ml Syringe IV 03/24/25 05:44 Q15MIN PRN BG 50-70 responsive npo pt Dextrose 50 ml 02/22/25 05:45 Dextrose 50%-Water Inj 50 Ml Syringe IV 03/24/25 05:44 Q15MIN PRN BG <50 OR BG <70 & pt unresponsive Glucagon 1 mg 02/22/25 05:45 Glucagon Inj 1 Mg Vial IM Q15MIN PRN BG <70, and no IV access Heparin Sodium (Porcine) 5,000 unit 02/22/25 09:00 02/24/25 09:06 Heparin Sod Inj 5000 Unit/Ml Vial SC 03/08/25 08:59 5,000 unit Q12HR PIERCE Administration Sodium Chloride 1,000 mls @ 125 mls/hr 02/23/25 13:47 02/24/25 06:15 Ns IV 03/25/25 13:46 125 mls/hr .Q8H PIERCE Administration Magnesium Sulfate 4 gm in 50 mls @ 12.5 mls/hr 02/24/25 08:01 02/24/25 09:06 Magnesium Sulfate Ivpb IV 02/24/25 12:00 12.5 mls/hr X1 ONE Administration Insulin Degludec 5 unit 02/24/25 21:00 Insulin Degludec 5 Unit/0.05 Ml (Per 5 Units) [place] 03/26/25 20:59 HS [facility] Insulin Human Lispro 0 unit 02/24/25 11:00 Insulin Lispro (Admelog) 1 Unit/0.01 Ml Unit [place] 03/26/25 10:59 ACHS [facility] Protocol Lisinopril 2.5 mg 02/23/25 13:45 02/24/25 09:06 Lisinopril 2.5 Mg Tablet PO 03/25/25 13:44 2.5 mg DAILY PIERCE Administration Morphine Sulfate 5 mg 02/23/25 13:47 Morphine Sulf Inj 10 Mg/Ml Vial IVP 02/28/25 13:46 Q4HR PRN PAIN Ondansetron HCl 4 mg 02/22/25 05:40 02/22/25 16:53 Ondansetron Inj 2 Mg/Ml Inj 2 Ml IVP 03/24/25 05:39 4 mg Q6H PRN Administration NAUSEA OR VOMITING Protocol Plan 74 year old male with a past medical history significant for diabete mellitus and hypertension and a previous episode of ileus, presents with abdominal pain, nausea, and vomiting, now admitted for high-grade small bowel obstruction, s/p exploratory lap with duodenal adhesion removal. #Small bowel obstruction Initially presented with generalized abdominal pain, several bouts of non-bloody emesis, and constipation for 2 days. Patient reports symptoms similar to a prior episode of ileus about one year ago, which resolved conservatively without surgical intervention. CT abd/pelvis confirms high-grade bowel loop obstruction. No previous history of surgery. Exploratory laparotomy completed 02/23, release of adhesions. Found to have a complete small bowel obstruction at the jejunal level due to adhesive band which was constricting the bowel considerably. Plan: - D/C NG tube - Started on clear diet, advance as tolerated. CTM for gas and BM #Type 2 diabetes mellitus Non-insulin dependent at . On Glipizide and metformin at home. home On admission initial glucose 241. Bedside continues in 200s. Hemoglobin A1c 7.1. Plan: - Bedside blood glucose checks ACHS. - Insulin degludec 5 units - ISS step 2 #Hypertension On Lisinopril at home Plan: - Lisinopril 2.5 mg PO daily - CTM BP #Hyperlipidemia On Simvastatin at home Plan: - Atorvastatin 5 mg PO QHS Health Maintenance DVT prophylaxis: Heparin 5,000 U subQ GI prophylaxis: None Diet: Clears, advance as tolerated Lines: Peripheral IV Pain mgmt: Tylenol PO PRN, morphine 5 mg IV q4h PRN CODE STATUS: FULL Delores Yañez MD PGY1
[2025-02-24] MEDS: INSULIN LISPRO (AdmeLOG) 1 UNIT/0.01 ML UNIT SC ×3 (11:37→20:15)
--- NOTE | 2025-02-24 15:15 | PC.SS ---
Pinion Sorter (ZEHRA Demarco, along with SAKSHI Tomlin, met with the patient at the bedside to complete an initial assessment and discuss a discharge plan. Patient is alert and oriented to person, place, time, and situation, and provided verbal consent to participate in the assessment. Patient presented to the ED with c/o generalized abdominal pain. Patient is Uri Lea, 74 y/o, , [place]ian-speaking male residing at home with his , Sola Lea, . The patient reports intermittently living in [place] and [place]. Patient's baseline is independent with no DME. The patient designated his son, Arnold Lea, , as his surrogate medical decision maker. Patient reports his PCP is from [place] in [place]. Patient's discharge plan is home with 24/7 family support and private transportation provided by family. Surrogate medical decision maker: Son, Arnold Lea, Discharge plan: Home
[2025-02-24] MEDS: ATORVASTATIN CALCIUM 10 MG TABLET 5 MG PO (20:14)
[2025-02-24] MEDS: INSULIN DEGLUDEC 5 UNIT/0.05 ML (PER 5 UNITS) SC (20:17)
[2025-02-25] VITALS (9 sets, daily range): BP systolic 145–165; BP diastolic 82–93; PULSE 90–111; RESP 16–18; TEMP 36.1–36.7; O2SAT 91–96
[2025-02-25 05:33] LABS: Basophils # (Auto) 0.0 Thou/mm3 (0.0-0.2); Basophils % (Auto) 0 % (0-2.5); Eosinophils # (Auto) 0.1 Thou/mm3 (0.0-0.5); Eosinophils % (Auto) 3 % (0-10); Hematocrit 32.0 % (41.0-53.0); Hemoglobin 10.3 g/dL (13.5-16.0); Immature Granulocytes Auto 0.01 Thou/mm3 (0.00-0.00); Lymphocytes # (Auto) 0.5 Thou/mm3 (1.0-4.8); Lymphocytes % (Auto) 14 % (10-50); Mean Corpuscular HGB Conc 32.2 g/dl (31.0-37.0); Mean Corpuscular Hemoglobin 30.1 pg (25.0-35.0); Mean Corpuscular Volume 94 fL (80-100); Monocytes # (Auto) 0.3 Thou/mm3 (0.0-0.8); Monocytes % (Auto) 7 % (0-12); Neutrophils # (Auto) 2.7 Thou/mm3 (1.8-7.7); Neutrophils % (Auto) 75 % (37-80); Nucleated Red Blood Cell # 0.00 Thou/mm3 (0.00-0.00); Nucleated Red Blood Cell % 0 /100 WBC (0); Platelet Count 102 Thou/mm3 (140-440); RDW Standard Deviation 45.8 fL (35.1-43.9); Red Blood Count 3.42 Miln/mm3 (4.50-5.90); White Blood Count 3.5 Thou/mm3 (3.8-10.6)
[2025-02-25 06:00] LABS: Alanine Aminotransferase 9 U/L (10-49); Albumin, Serum 3.3 gm/dL (3.4-4.8); Albumin/Globulin Ratio 1.7 (1.2-2.2); Alkaline Phosphatase 59 U/L (46-116); Anion Gap 8 (7-16); Aspartate Amino Transferase 11 U/L (0-34); BUN/Creatinine Ratio 13 Ratio (12-20); Bilirubin,Total 0.5 mg/dL (0.3-1.2); Blood Urea Nitrogen 15 mg/dL (9-23); Calcium 8.5 mg/dL (8.3-10.6); Calcium (Corrected) 9.1 mg/dL (8.5-10.1); Carbon Dioxide 28.5 mMol/L (20.0-31.0); Chloride 106 mMol/L (98-107); Creatinine (Component) 1.2 mg/dL (0.6-1.3); Estimated Creatinine Clearance 51.5 mL/min (>60); Globulin 1.9 gm/dL (2.3-3.5); Glucose 138 mg/dL (74-106); Magnesium 1.9 mg/dL (1.6-2.6); Osmolality,Calculated 285 (275-295); Phosphorous 2.5 mg/dL (2.4-5.1); Potassium 3.8 mMol/L (3.4-5.1); Sodium 142 mMol/L (136-145); Total Protein 5.2 gm/dL (5.7-8.2); eGFR > 60 See Note
[2025-02-25] MEDS: HEPARIN SOD INJ 5000 UNIT/ML VIAL SC ×2 (08:02→20:46)
[2025-02-25] MEDS: SODIUM CHLORIDE 0.9% 1000 ML 1,000 ML 125 ML IV (08:02)
--- NOTE | 2025-02-25 11:00 | ESPR_ITS ---
<Statement entered by Ely Ríos MD - 02/25/25 16:53> I attest that I was physically present for the evaluation, physical examination, lab and imaging review of the patient with the residents. I discussed the case with the residents and agree with the findings and plans of care as documented below. At bedside today, patient states he does not have any pain, has been passing gas but no bowel movements yet. Denies any nausea or vomiting. Vital signs and lab results are stable. Discussed with general surgery, agreed on advancing diet. We will also obtain physical therapy evaluation and encourage the patient to ambulate. Ely Ríos MD <Statement entered by Elena Melgar MD - 02/25/25 13:56> Note reviewed, I agree with most of its contents and agree with the patient's care as documented by Dr. Baker. Patient examined at bedside. No overnight events reported. Vitals and labs reviewed. Patient's postop day 2 status post ex lap with enterolysis of small bowel adhesions. SBO slowly improving as he endorses flatulence. However denies any bowel movements yet. Plan to advance diet slowly and PT evaluation tomorrow. Patient is eager to ambulate. The patient's management plan was discussed with my attending physician Dr. Ríos. Elena Melgar, PGY-2 Documentation for date of: 02/25/25 Subjective Subjective Interval history: 02/25/25: patient seen and examined at bedside, pt is tearful and wishes that his and children could come to visit him. He is concerned about being able to get back to his baseline physical status of ambulating and swimming. He reports some weakness, and has not been up to walk or to chair yet. PT eval placed. Exam Vital Signs Temp Pulse Resp BP Pulse Ox O2 Del Method O2 Flow Rate 97.0 F 92 17 158/82 H 96 Nasal Cannula 2 02/25/25 08:00 02/25/25 09:53 02/25/25 09:53 02/25/25 08:05 02/25/25 09:53 02/25/25 08:00 02/25/25 09:53 Narrative Exam General: No acute distress, well nourished Eye: PERRL, EOMI, normal conjunctiva, no scleral icterus HENT: Normocephalic, atraumatic, normal hearing, moist oral mucosa Neck: Supple, non-tender, no JVD, no lymphadenopathy Lungs: Clear to auscultation bilaterally, non-labored respirations, symmetric chest rise, no use of accessory muscles Heart: Normal S1 and S2, no S3 or S4 appreciated. Normal rate and regular rhythm, no murmurs, rubs gallops, or edema. Peripheral pulses intact bilaterally, capillary refill brisk distally. No LE edema Abdomen: Soft, mildly distended. Clean ex lap scar, bandaged. minimal tenderness around incision, Musculoskeletal: Normal range of motion and strength, no tenderness or swelling Skin: Skin is warm, dry, no rashes or lesions. Neurologic: Alert, awake and oriented x3. CN II-XII grossly intact. No focal neuro deficits. Psychiatric: Cooperative, appropriate mood and affect Objective Labs 02/25/25 05:11 02/25/25 05:11 Labs: Laboratory Results - last 24 hr 02/25/25 05:11 WBC 3.5 L RBC 3.42 L Hgb 10.3 L Hct 32.0 L MCV 94 MCH 30.1 MCHC 32.2 RDW Std Deviation 45.8 H Plt Count 102 L Neut % (Auto) 75 Lymph % (Auto) 14 Douglas % (Auto) 7 Eos % (Auto) 3 Baso % (Auto) 0 Neut # (Auto) 2.7 Lymph # (Auto) 0.5 L Douglas # (Auto) 0.3 Eos # (Auto) 0.1 Baso # (Auto) 0.0 Immature Gran # (Auto) 0.01 H Absolute Nucleated RBC 0.00 Immature Gran % 0 Nucleated RBC % 0 Sodium 142 Potassium 3.8 Chloride 106 Carbon Dioxide 28.5 Anion Gap 8 BUN 15 Creatinine 1.2 Estim Creat Clear Calc 51.5 L eGFR > 60 BUN/Creatinine Ratio 13 Glucose 138 H D Calculated Osmolality 285 Calcium 8.5 Corrected Calcium 9.1 Phosphorus 2.5 Magnesium 1.9 Total Bilirubin 0.5 AST 11 ALT 9 L Alkaline Phosphatase 59 Total Protein 5.2 L Albumin 3.3 L Globulin 1.9 L Albumin/Globulin Ratio 1.7 Quality Measures Quality Measures VTE prophylaxis Advance care planning discussed with:: patient Assessment & Plan Assessment Current Active Medications: Generic Name Dose Route Start Last Admin Trade Name Freq PRN Reason Stop Dose Admin Acetaminophen 650 mg 02/24/25 11:40 Acetaminophen 325 Mg Tablet PO 03/26/25 11:39 Q4HR PRN Pain 1-4 Albuterol/Ipratropium 3 ml 02/23/25 10:21 Albuterol/Ipratropium (Duoneb) Rt Genny 3 Ml Nebu INH 03/25/25 10:20 Q4HRRT PRN SHORTNESS OF BREATH Atorvastatin Calcium 5 mg 02/23/25 13:45 02/24/25 20:14 Atorvastatin Calcium 10 Mg Tablet PO 03/25/25 13:44 5 mg HS PIERCE Administration Dextrose 25 ml 02/22/25 05:45 Dextrose 50%-Water Inj 50 Ml Syringe IV 03/24/25 05:44 Q15MIN PRN BG 50-70 responsive npo pt Dextrose 50 ml 02/22/25 05:45 Dextrose 50%-Water Inj 50 Ml Syringe IV 03/24/25 05:44 Q15MIN PRN BG <50 OR BG <70 & pt unresponsive Glucagon 1 mg 02/22/25 05:45 Glucagon Inj 1 Mg Vial IM Q15MIN PRN BG <70, and no IV access Heparin Sodium (Porcine) 5,000 unit 02/22/25 09:00 02/25/25 08:02 Heparin Sod Inj 5000 Unit/Ml Vial SC 03/08/25 08:59 5,000 unit Q12HR PIERCE Administration Sodium Chloride 1,000 mls @ 125 mls/hr 02/23/25 13:47 02/25/25 08:02 Ns IV 03/25/25 13:46 125 mls/hr .Q8H PIERCE Administration Insulin Degludec 5 unit 02/24/25 21:00 02/24/25 20:17 Insulin Degludec 5 Unit/0.05 Ml (Per 5 Units) SC 03/26/25 20:59 5 unit HS PIERCE Administration Insulin Human Lispro 0 unit 02/24/25 11:00 02/25/25 07:33 Insulin Lispro (Admelog) 1 Unit/0.01 Ml Unit SC 03/26/25 10:59 Not Given ACHS [facility] Protocol Lisinopril 10 mg 02/26/25 09:00 Lisinopril 2.5 Mg Tablet PO 03/28/25 08:59 DAILY PIERCE Morphine Sulfate 5 mg 02/23/25 13:47 Morphine Sulf Inj 10 Mg/Ml Vial IVP 02/28/25 13:46 Q4HR PRN PAIN Ondansetron HCl 4 mg 02/22/25 05:40 02/22/25 16:53 Ondansetron Inj 2 Mg/Ml Inj 2 Ml IVP 03/24/25 05:39 4 mg Q6H PRN Administration NAUSEA OR VOMITING Protocol Plan 74 year old male with a past medical history significant for diabete mellitus and hypertension and a previous episode of ileus, presents with abdominal pain, nausea, and vomiting, now admitted for high-grade small bowel obstruction, s/p exploratory lap with duodenal adhesion removal. #Small bowel obstruction s/p ex lap- POD 3 Initially presented with generalized abdominal pain, several bouts of non-bloody emesis, and constipation for 2 days. Patient reports symptoms similar to a prior episode of ileus about one year ago, which resolved conservatively without surgical intervention. CT abd/pelvis confirms high-grade bowel loop obstruction. No previous history of surgery. Exploratory laparotomy completed 02/23, release of adhesions. Found to have a complete small bowel obstruction at the jejunal level due to adhesive band which was constricting the bowel considerably. pt endorses passing gas, no BM to date, tolerating clears well, pain is well controlled Plan: - Full liquid diet, advance as tolerated - CTM for BM - Up to chair tid with assistance - PT eval ordered #Type 2 diabetes mellitus Non-insulin dependent at . On Glipizide and metformin at home. home On admission initial glucose 241. Better controlled, with AM BG wnl Hemoglobin A1c 7.1. Plan: - Bedside blood glucose checks ACHS. - Insulin degludec 5 units - ISS step 2 #Hypertension On Lisinopril at home BP while inpatient 150s-160s Plan: - Increase Lisinopril from 2.5 mg to 10 mg PO daily - CTM BP #Hyperlipidemia On Simvastatin at home Plan: - Atorvastatin 5 mg PO QHS Health Maintenance DVT prophylaxis: Heparin 5,000 U subQ GI prophylaxis: protonix 20 qd Diet: full liquid, advance as tolerated Lines: Peripheral IV Pain mgmt: Tylenol PO PRN, morphine 5 mg IV q4h PRN CODE STATUS: FULL Plan discussed with Dr. Melgar and Dr. Khushbu Baker MD PGY1
[2025-02-25] MEDS: INSULIN LISPRO (AdmeLOG) 1 UNIT/0.01 ML UNIT SC ×2 (11:27→16:55)
--- NOTE | 2025-02-25 12:12 | PD.SURPROG ---
Documentation for date of: 02/25/25 Subjective Subjective Brief History: History of present illness revealed that the patient was in his usual health until 3 days ago when he stopped having bowel movements. He also was doing slight abdominal distention. But yesterday by 4:00 he started having pain in the abdomen that was diffuse which increased in intensity and therefore he came to the hospital. Patient had his prior episode like this about a year ago and was treated and discharged. Patient denies any such surgery in the past. Patient had a colonoscopy 3 months ago in [place] it was negative according to him. his other medical problem consisted of diabetes mellitus and hypertension. Patient was started on small bowel series today but he vomited 4 times Narrative: The patient is tolerating clear liquids and is passing flatus Exam Vital Signs Temp Pulse Resp BP Pulse Ox O2 Del Method O2 Flow Rate 97.0 F 92 17 158/82 H 96 Nasal Cannula 2 02/25/25 08:00 02/25/25 09:53 02/25/25 09:53 02/25/25 08:05 02/25/25 09:53 02/25/25 08:00 02/25/25 09:53 Vital signs are normal Routine Abdominal Exam Comments: Abdomen is soft but still have hypoactive bowel sounds. Results Results: Laboratory Laboratory Narrative: Lab results are within normal limits Assessment & Plan Assessment Additional comments: Impression: Stable postoperative course following enterolysis Plan Plan: We shall advance her diet to full liquids Increase physical activity with PT PROCEDURES: Procedures Explored laparotomy and release of adhesions,(enterolysis)
[2025-02-25] MEDS: ONDANSETRON INJ 2 MG/ML INJ 2 ML 4 MG IVP (14:42)
--- NOTE | 2025-02-25 16:02 | PC.SS ---
Addendum entered by Maribel Kim 02/25/25 16:05: Rounding note: Advancing diet today, october discharge 02-26-25. Discharge plan: Home. Original Note: SS received call from Gelacio from [facility] requesting to speak to [facility] regarding patient. Gelacio provided her contact number [phone] and requested to be contacted by [facility]. Contact information forwarded to [facility] Dept. via email.
[2025-02-25] MEDS: PANTOPRAZOLE 20 MG TABLET PO (16:49)
[2025-02-25] MEDS: ATORVASTATIN CALCIUM 10 MG TABLET 5 MG PO (20:44)
[2025-02-25] MEDS: INSULIN DEGLUDEC 5 UNIT/0.05 ML (PER 5 UNITS) SC (20:46)
[2025-02-25] MEDS: MELATONIN 3 MG TABLET 6 MG PO (22:50)
[2025-02-26 00:46] VITALS: PULSE 98; RESP 18; O2SAT 95
[2025-02-26 05:18] VITALS: BP 154/86; PULSE 106; RESP 18; TEMP 36.2; O2SAT 91
[2025-02-26 05:51] LABS: Basophils # (Auto) 0.0 Thou/mm3 (0.0-0.2); Basophils % (Auto) 1 % (0-2.5); Eosinophils # (Auto) 0.1 Thou/mm3 (0.0-0.5); Eosinophils % (Auto) 3 % (0-10); Hematocrit 33.2 % (41.0-53.0); Hemoglobin 11.0 g/dL (13.5-16.0); Immature Granulocytes Auto 0.01 Thou/mm3 (0.00-0.00); Lymphocytes # (Auto) 0.6 Thou/mm3 (1.0-4.8); Lymphocytes % (Auto) 16 % (10-50); Mean Corpuscular HGB Conc 33.1 g/dl (31.0-37.0); Mean Corpuscular Hemoglobin 30.8 pg (25.0-35.0); Mean Corpuscular Volume 93 fL (80-100); Monocytes # (Auto) 0.3 Thou/mm3 (0.0-0.8); Monocytes % (Auto) 7 % (0-12); Neutrophils # (Auto) 2.7 Thou/mm3 (1.8-7.7); Neutrophils % (Auto) 74 % (37-80); Nucleated Red Blood Cell # 0.00 Thou/mm3 (0.00-0.00); Nucleated Red Blood Cell % 0 /100 WBC (0); Platelet Count 99 Thou/mm3 (140-440); RDW Standard Deviation 44.5 fL (35.1-43.9); Red Blood Count 3.57 Miln/mm3 (4.50-5.90); White Blood Count 3.7 Thou/mm3 (3.8-10.6)
[2025-02-26 06:30] LABS: Alanine Aminotransferase < 7 U/L (10-49); Albumin, Serum 3.6 gm/dL (3.4-4.8); Albumin/Globulin Ratio 2.3 (1.2-2.2); Alkaline Phosphatase 60 U/L (46-116); Anion Gap 12 (7-16); Aspartate Amino Transferase < 10 U/L (0-34); BUN/Creatinine Ratio 13 Ratio (12-20); Bilirubin,Total 0.6 mg/dL (0.3-1.2); Blood Urea Nitrogen 16 mg/dL (9-23); Calcium 9.0 mg/dL (8.3-10.6); Calcium (Corrected) 9.3 mg/dL (8.5-10.1); Carbon Dioxide 26.3 mMol/L (20.0-31.0); Chloride 104 mMol/L (98-107); Creatinine (Component) 1.2 mg/dL (0.6-1.3); Estimated Creatinine Clearance 51.5 mL/min (>60); Globulin 1.6 gm/dL (2.3-3.5); Glucose 121 mg/dL (74-106); Magnesium 1.5 mg/dL (1.6-2.6); Osmolality,Calculated 285 (275-295); Phosphorous 2.1 mg/dL (2.4-5.1); Potassium 3.4 mMol/L (3.4-5.1); Sodium 142 mMol/L (136-145); Total Protein 5.2 gm/dL (5.7-8.2); eGFR > 60 See Note
[2025-02-26 07:50] VITALS: PULSE 94; RESP 18; O2SAT 96
[2025-02-26 08:00] VITALS: BP 163/86; PULSE 98; RESP 16; TEMP 36.3; O2SAT 92
[2025-02-26 08:03] VITALS: BP 163/86; PULSE 98
[2025-02-26] MEDS: PANTOPRAZOLE 20 MG TABLET PO (08:03)
[2025-02-26] MEDS: HEPARIN SOD INJ 5000 UNIT/ML VIAL SC (08:03)
--- NOTE | 2025-02-26 09:00 | PC.SS ---
Rounding: Plan for DC today pending PT
[2025-02-26] MEDS: Magnesium Sulfate 4 GM Ivpb 4 GM/50 ML BAG IV (09:16)
[2025-02-26] MEDS: NAPH,KPH MBDB 1 PACKET (1.5 GM) PO (09:16)
--- NOTE | 2025-02-26 09:43 | ESDS_ITS ---
<Statement entered by Mitra Ruffin MD - 02/26/25 18:27> I discussed with and supervised the manager international physician who took care of this patient. I personally saw and examined the patient and discussed the assessment and plan with the entire medicine team, including my attending Dr. Mcfarland, I agree with most of the assessment and plan as documented below Mitra Ruffin M.D. PGY-3 Planned Discharge Date 02/26/25 DS: Providers Provider Date of admission: 02/22/25 05:41 Primary care physician: Physician Francesca Primary/Family Admitting Provider: Phil Shea DO Attending Provider on Admission: Wali Mcfarland MD Consults: 02/22/25 19:38 Consult to General Surgery Urgent Comment: High grade SBO Consulting Provider: Yaneth Norton 02/25/25 09:15 Referral Physical Therapy Urgent Comment: Physician Instructions: Instructions: post op ex lap, cf wkness with ambulation 02/25/25 12:12 Referral Physical Therapy Urgent Comment: Physician Instructions: Instructions: For ambulation in the hallway Attending Provider on DC: Dr. Mcfarland Discharging Provider: Dr. Mcfarland DS: Diagnosis Problem List Completed Was Problem List Reviewed/Reconciled?: Yes Hospital Course Hospital Course Hospital course: Hospital Course 74 y/o F with PMHx significant for DM, previous episode of SBO presented with c vaef complaint of abdominal pain, nausea, vomiting x 1 day, admitted for high- grade SBO seen on CTAP, kept npo, ng tube placed, underwent small bowel series with gastrograffin, general surgery was consulted and taken for ex lap with Dr. Mojica on 02.23. Patient was found to have a complete small bowel obstruction at the jejunal level due to adhesive band which was constricting the bowel considerably. no resection with ebl 30, closure with angelica. post op his pain was well controlled without opioids. he was started on clear diet, which was tolerated well, he endorsed passing gas, and his diet was advanced. he had bowel movement and tolerated regular diet. surgeon cleared for discharge with outpatient f/u. pt was able to ambulate independently. Patient stable and medically cleared for discharge Diagnoses #high grade small bowel obstruction s/p ex lap #Type 2 diabetes mellitus #Hypertension #hyperlipidemia Discharge instructions please follow up with Dr Mojica, surgeon, in 2 weeks start taking lisinopril 10 mg daily for your blood pressure Plan discussed with Dr. Melgar, Dr Ruffin, and Dr. Bruna Baker MD PGY1 Time Spent with Patient Time attestation: Total time spent providing and/or coordinating discharge services: Time spent: Greater than 30 minutes Exam Vital Signs Temp Pulse Resp BP Pulse Ox O2 Del Method O2 Flow Rate 97.3 F 98 16 163/86 H 92 L Room Air 1 02/26/25 08:00 02/26/25 08:03 02/26/25 08:00 02/26/25 08:03 02/26/25 08:00 02/26/25 08:00 02/25/25 12:00 Narrative Exam General: No acute distress, well nourished Eye: PERRL, EOMI, normal conjunctiva, no scleral icterus HENT: Normocephalic, atraumatic, normal hearing, moist oral mucosa Neck: Supple, non-tender, no JVD, no lymphadenopathy Lungs: Clear to auscultation bilaterally, non-labored respirations, symmetric chest rise, no use of accessory muscles Heart: Normal S1 and S2, no S3 or S4 appreciated. Normal rate and regular rhythm, no murmurs, rubs gallops, or edema. Peripheral pulses intact bilaterally, capillary refill brisk distally. No LE edema Abdomen: Soft, mildly distended. Clean ex lap scar, bandaged. minimal tenderness around incision, Musculoskeletal: Normal range of motion and strength, no tenderness or swelling Skin: Skin is warm, dry, no rashes or lesions. Neurologic: Alert, awake and oriented x3. CN II-XII grossly intact. No focal neuro deficits. Psychiatric: Cooperative, appropriate mood and affect Discharge Plan Plan Patient Disposition: HOME (Self Care) Patient condition on transfer: Stable Prescriptions/Referrals Prescriptions/Med Rec: New lisinopril 2.5 mg Tablet 10 mg PO DAILY 30 Days Qty: 120 0RF Continued simvastatin 10 mg tablet 10 mg PO DAILY metformin 1,000 mg tablet 1,000 mg PO BID glipizide 10 mg tablet 10 mg PO BID pantoprazole 20 mg tablet,delayed release (DR/EC) 20 mg PO DAILY aspirin [Ecotrin Low Strength] 81 mg tablet,delayed release (DR/EC) 81 mg PO QDAY Discontinued lisinopril 2.5 mg tablet 2.5 mg PO DAILY Referrals: No Primary/Family,Physician [Primary Care Provider] - Yaneth Norton MD [Physician] - Patient/Caregiver Discharge Instructions Other Discharge Activity Instructions:: Follow up with Dr. Mojica in 2 weeks. Address: [facility] [address], [place] [address] Increase your lisinopril dose to 10mg daily for high blood pressure. Gradually increase your physical activity. Follow up with PCP in 1-2 weeks. Education Materials: Large Bowel Obstruction, Exploratory Laparotomy, Preventing Surgical Site Infections Print Language: French Stand Alone Forms: Lilibeth Award Info., Patient Portal Info Letter Discharge Order Discharge Orders: Discharge (Routine); Ordered 02/26/25 Ordered By: Elena Melgar Quality Discharge Quality Measures VTE prophylaxis Attestestation MD Attestation I have examined the patient, reviewed labs and imaging findings, discussed the case with the resident(s), and reviewed entered orders. I agree with the plan of care as outlined in this note. Time Spent: [address] Bruna MD
--- NOTE | 2025-02-26 09:57 | PD.SURPROG ---
Documentation for date of: 02/26/25 Subjective Subjective Brief History: History of present illness revealed that the patient was in his usual health until 3 days ago when he stopped having bowel movements. He also was doing slight abdominal distention. But yesterday by 4:00 he started having pain in the abdomen that was diffuse which increased in intensity and therefore he came to the hospital. Patient had his prior episode like this about a year ago and was treated and discharged. Patient denies any such surgery in the past. Patient had a colonoscopy 3 months ago in [place] it was negative according to him. his other medical problem consisted of diabetes mellitus and hypertension. Patient was started on small bowel series today but he vomited 4 times Narrative: The patient has had 2 bowel movements. His abdominal pain is better and is not using any pain medications Exam Vital Signs Temp Pulse Resp BP Pulse Ox O2 Del Method O2 Flow Rate 97.3 F 98 16 163/86 H 92 L Room Air 1 02/26/25 08:00 02/26/25 08:03 02/26/25 08:00 02/26/25 08:03 02/26/25 08:00 02/26/25 08:00 02/25/25 12:00 His vital signs are normal other than elevated BP Routine Abdominal Exam Comments: Abdominal examination is negative Results Results: Laboratory Laboratory Narrative: Lab results are within normal limits Assessment & Plan Assessment Additional comments: Impression: Satisfactory recovery following enterolysis Plan Plan: Patient could be discharged anytime and I will follow him up in my office in 2 weeks PROCEDURES: Procedures Explored laparotomy and release of adhesions,(enterolysis)
--- NOTE | 2025-02-26 12:12 | PC.PT ---
Per RN and patient, he has been up to the bathroom and ambulating in his room with just the IV pole. Patient was able to stand and push the IV pole outside the room to across the pedersen x2 in front of PT. Patient is xI and is requesting PT for safety. Will cancel PT eval. RN and MD made aware.
--- NOTE | 2025-02-26 14:24 | PC.CM ---
I received a referral for home health services. Patient lives out of town and we do not know the PCP. I called Dr. Melgar and I let her know I tried calling Dr. Mcfarland to let him know I would not be able to set up home health because patient lives out of the area.
== END 2025-02-26 13:30 | disposition home or self-care (01) | DRG 337 ==
LOC: SERX 02-22 00:30 → SERHOLD 02-22 07:10 → S3SX 02-22 08:34
PROVIDERS: Physician Assistant; Surgery; Admitting Provider Student in an Organized Health Care Education/Training Program; Emergency Provider Emergency Medicine; Visit Provider Student in an Organized Health Care Education/Training Program
PROC: 0DNA0ZZ Release Jejunum, Open Approach (ICD-10-PCS; CPT 49000; principal; 2025-02-23 10:00)
DX: K56.52 Intestinal adhesions [bands] with complete obstruction (principal); K56.600 Partial intestinal obstruction, unspecified as to cause; E11.9 Type 2 diabetes mellitus without complications; Z88.0 Allergy status to penicillin; I10 Essential (primary) hypertension; K57.10 Diverticulosis of small intestine without perforation or abscess without bleeding; Z87.891 Personal history of nicotine dependence
CPT/HCPCS: 36415; 74018; 74177; 74250; 80048; 80053; 80307; 81001; 83036; 83605; 83690; 83735; 84100; 84145; 85025; 94664; 96361; 96374; 96375; 96376; 99284; A4217; A4649; J0131; J0330; J0694; J1100; J1644; J1815; J2270; J2371; J2405; J2704; J2765; J3010; J3475; J3490; J7030; J7120; Q9963; Q9967; A9270; J1805